=== PATIENT | male | born 1940 | race Two or more races ===

== ENCOUNTER 2016-07-05 07:58 | Day surgery (SDC) | payer MEDICARE, BC ==
--- NOTE | 2016-06-27 12:53 | EKG REPORT ---
SEVERITY:- ABNORMAL ECG - A-V DUAL-PACED COMPLEXES W/ SOME INHIBITION : Confirmed by: Symone Hammond MD 27-Jun-2016 12:52:01
[2016-06-27 12:56] LABS: HEMATOCRIT 45.1 % (37.9-51.0); HEMOGLOBIN 15.4 g/dL (13.5-17.0); HGB HCT DIFFERENCE 1.1; MEAN CORPUSCULAR HEMOGLOBIN 31.2 pg (27.0-33.4); MEAN CORPUSCULAR HGB CONC 34.2 g/dL (32.0-36.0); MEAN CORPUSCULAR VOLUME 91 fl (80-97); RED BLOOD COUNT 4.94 10^6/uL (4.35-5.55); RED CELL DISTRIBUTION WIDTH 15.4 % (11.5-14.0); WHITE BLOOD COUNT 5.4 10^3/uL (4.0-10.5)
[2016-06-27 12:59] LABS: PROTHROMBIN TIME 17.6 SEC (11.4-15.4)
[2016-06-27 13:20] LABS: ANION GAP 12 (5-19); BLOOD UREA NITROGEN 23 mg/dL (7-20); CALCIUM 9.5 mg/dL (8.4-10.2); CARBON DIOXIDE 29 mmol/L (22-30); CHLORIDE 104 mmol/L (98-107); CREATININE RESULT 1.03 mg/dL (0.52-1.25); GLUCOSE 168 mg/dL (75-110); POTASSIUM 4.2 mmol/L (3.6-5.0); SODIUM 144.9 mmol/L (137-145)
[~2016-07-05 07:58] MED LIST: DOXYCYCLINE HYCLATE 100 MG in DEXTROSE 5%-WATER 250 ML IV PRN; LACTATED RINGERS 1000 ML IV PRN; LIDOCAINE 0.5% INJ-PF (5 MG/ML) 50 ML SDV SUBCUT PRN
[2016-07-05 09:24] LABS: PROTHROMBIN TIME 14.2 SEC (11.4-15.4)
[2016-07-05 09:25] LABS: PARTIAL THROMBOPLASTIN TIME 29.7 SEC (23.5-35.8)
[2016-07-05] MEDS ORDERED: SODIUM BICARBONATE 8.4% INJ 50 MEQ/50 ML DISP.SYRIN ONE (09:34)
[2016-07-05] MEDS ORDERED: LIDOCAINE 1%/EPINEPHRINE INJ 20 ML VIAL ONE (09:34)
[2016-07-05] MEDS ORDERED: FENTANYL CITRATE INJ/PF 100 MCG/2 ML AMPUL ONE (10:49)
[2016-07-05] MEDS ORDERED: PROPOFOL INJ 200 MG/20 ML VIAL IV ONE (10:50)
[2016-07-05] MEDS ORDERED: MIDAZOLAM 2 MG/2 ML INJ ONE (10:50)
[2016-07-05] MEDS ORDERED: DIPHENHYDRAMINE HCL 50 MG/ML VIAL IV PRN (11:38)
[2016-07-05] MEDS ORDERED: FENTANYL CITRATE INJ/PF 100 MCG/2 ML AMPUL IV PRN ×3 (11:38)
--- NOTE | 2016-07-05 12:49 | Operative Report ---
Operative Report DATE OF SURGERY: 07/05/16 PREOPERATIVE DIAGNOSIS: Large deep posterior neck midline mass extending subfascial POSTOPERATIVE DIAGNOSIS: Same OPERATION: Excision of deep extending subfascial mass of the midline posterior neck SURGEON: RANULFO CAVAZOS ANESTHESIA: LMAC TISSUE REMOVED OR ALTERED: Deep subfascial extending mass COMPLICATIONS: None ESTIMATED BLOOD LOSS: minimal PROCEDURE: The patient was brought into the operating room after being marked. The patient was placed in a sloppy lateral position. The patient was then prepped with a Betadine scrub and Betadine solution. A timeout was performed. The area for resection was outlined. Injection of 1% lidocaine with epinephrine and bicarbonate was performed for its anesthetic and hemostatic effects. An incision was then made through the skin into the subcutaneous tissue. Dissection was performed [id number] to encounter the mass. Once the mass was encountered a dissection was performed 360 in order to remove the mass Retraction was used to facilitate exposure. Dissection was performed through the subcutaneous tissue and down into the deeper sub-fascial layer . A portion of the deep fascia was opened as we excised the mass at its base. Throughout the case hemostasis was achieved with the bipolar. Once the mass was completely dissected it was then removed. The area was washed with Betadine and sterile water solution. Hemostasis was confirmed. Closure was then performed using 3-0 Vicryl sutures. Because of the size of the mass deeper sutures were placed in order to minimize a deformity. The layers that were dissected were closed [id number] until we reached the deep dermis. 3-0 Vicryl was used for deep dermal sutures. A subcuticular stitch was placed using 3-0 PDS. A central support stitch was placed using and PDS. The wound was cleaned with Betadine prior to the final closure. Tincture of benzoin and Steri-Strips with a light pressure dressing was applied. Patient was then reversed from anesthesia and taken to the [facility] for recovery. The approximate size of the mass was 3.1 cm prior to opening the mass to show the patient the contents. This dictation was performed with dragon naturally speaking. If there are any inconsistencies or errors please contact the physician. Subjective: No complaints Objective: Vital signs stable afebrile No bleeding Dressing intact Assessment and plan: Doing well. Elevate the operative site. Resume medications. Take antibiotics for 1 day Follow-up Full instructions were given to the patient and family and they understand Portions of this note may be dictated using [employer] voice recognition software. Occasional variations and spelling and vocabulary could be possible and are unintentional. Additionally, there is a chance that some errors may not be caught or corrected. Please notify the offer of any discrepancies noted or if any statements are unclear.
--- NOTE | 2016-07-05 12:52 | PDOC DISCHARGE SUMMARY ---
Discharge Summary (SDC) - Discharge Final Diagnosis: Mass of the midline posterior neck extending into the deep subcutaneous fascial layer Date of Surgery: 07/05/16 Condition: Good Treatment or Instructions: Leave the top dressing on for 2 days, then removed. Leave the steri-strip tapes on for 5 days, then removal. Then cleaning wound with peroxide and apply Neosporin/bacitracin 3 times per day. Antibiotics for 1 day, then discontinue. Elevate operative area to decrease swelling. Do not strain, or lift heavy objects. Call for excessive bleeding, increased temperature of 101, uncontrolled pain, or excessive nausea or vomiting. You may reach Dr. Booth through his office at [phone]. In the event of an emergency after hours, then contact Dr. Booth through [facility]. Return to the office for a postop check on . The time will be scheduled by the nursing staff of [facility] prior to discharge. Please give the patient a copy of their labs and EKG so they can bring this to their PMD. Thank you Portions of this note may be dictated using [employer] voice recognition software. Occasional variations and spelling and vocabulary could be possible and are unintentional. Additionally, there is a chance that some errors may not be caught or corrected. Please notify the offer of any discrepancies noted or if any statements are unclear. Discharge Diet: As Tolerated Discharge Activity: Activity As Tolerated - Discharged to home
[2016-07-05 14:49] VITALS: BP 160/103
== END 2016-07-05 14:19 | disposition home or self-care (01) ==
LOC: OROUT 07:58
PROVIDERS: ATTEND Plastic Surgery
PROC: 0JB50ZX Excision of Left Neck Subcutaneous Tissue and Fascia, Open Approach, Diagnostic (ICD-10-PCS; principal; 2016-07-05 10:00)
DX: L72.0 Epidermal cyst (principal); E11.9 Type 2 diabetes mellitus without complications; I11.0 Hypertensive heart disease with heart failure; I50.9 Heart failure, unspecified; I48.91 Unspecified atrial fibrillation; Z79.01 Long term (current) use of anticoagulants; Z79.899 Other long term (current) drug therapy; Z79.84 Long term (current) use of oral hypoglycemic drugs; Z95.0 Presence of cardiac pacemaker
CPT/HCPCS: 93005; 36415 ×2; 82962; 84132; 85027; 85610 ×2; 85730 ×2; 80048; 88305 ×2; 93010; 21556; J2250; J3490 ×3; J7060; J2704; J3010

== ENCOUNTER 2018-10-16 16:37 | Inpatient (IN) | payer MEDICARE, BC ==
--- NOTE | 2018-10-16 17:23 | ER Document Report ---
ED Medical Screen (RME) - General Chief Complaint: Breathing Difficulty Stated Complaint: BREATHING PROBLEMS Time Seen by Provider: 10/16/18 17:12 Primary Care Provider: ALEX BULLOCK PA-C [Primary Care Provider] - Follow up as needed Mode of Arrival: Ambulatory Information source: Patient Notes: Patient is a 78-year-old male with a history of congestive heart failure sent here by Dr. Hoffman for approximately 3 weeks of swelling and increasing shortness of breath with ambulation. He denies any chest pain. TRAVEL OUTSIDE OF THE [place] IN LAST 30 DAYS: No - Related Data Allergies/Adverse Reactions: Cephalosporins Allergy (Verified 10/16/18 16:39) Rash erythromycin base [Erythromycin Base] Allergy (Verified 10/16/18 16:39) RASH Past Medical History - Past Medical History Cardiac Medical History: Reports: Hx Atrial Fibrillation, Hx Hypertension Denies: Hx Coronary Artery Disease, Hx Heart Attack Pulmonary Medical History: Denies: Hx Asthma, Hx Bronchitis, Hx COPD, Hx Pneumonia Neurological Medical History: Denies: Hx Cerebrovascular Accident, Hx Seizures Endocrine Medical History: Reports: Hx Diabetes Mellitus Type 2 GI Medical History: Denies: Hx Hepatitis, Hx Hiatal Hernia, Hx Ulcer Musculoskeltal Medical History: Denies Hx Arthritis Infectious Medical History: Denies: Hx Hepatitis Past Surgical History: Reports: Hx Cardiac Surgery - pacemaker, Hx Pacemaker - DO NOTHING. Denies: Hx Open Heart Surgery - Immunizations Hx Diphtheria, Pertussis, Tetanus Vaccination: Yes Review of Systems - Review of Systems Cardiovascular: See HPI Physical Exam - Vital signs Vitals: Pulse Resp BP Pulse Ox 40 L 12 112/78 92 10/16/18 16:56 10/16/18 16:56 10/16/18 16:56 10/16/18 16:56 - Notes Notes: PHYSICAL EXAMINATION: GENERAL: Chronically ill-appearing and in no acute distress. LUNGS: CTAB and equal. No wheezes rales or rhonchi. Course - Vital Signs Vital signs: Temp Pulse Resp BP Pulse Ox 40 L 12 112/78 92 10/16/18 16:56 10/16/18 16:56 10/16/18 16:56 10/16/18 16:56 Doctor's Discharge - Discharge Referrals: ALEX BULLOCK PA-C [Primary Care Provider] - Follow up as needed
--- NOTE | 2018-10-16 17:37 | RADIOLOGY REPORT (SQ) ---
EXAM DESCRIPTION: CHEST SINGLE VIEW COMPLETED DATE/TIME: 10/16/2018 5:29 pm REASON FOR STUDY: sob COMPARISON: None. EXAM PARAMETERS: NUMBER OF VIEWS: One view. TECHNIQUE: Single frontal radiographic view of the chest acquired. RADIATION DOSE: NA LIMITATIONS: None. FINDINGS: LUNGS AND PLEURA: No opacities, masses or pneumothorax. No pleural effusion. MEDIASTINUM AND HILAR STRUCTURES: No masses. Contour normal. HEART AND VASCULAR STRUCTURES: Cardiomegaly. No pulmonary edema. BONES: No acute findings. HARDWARE: Pacemaker. OTHER: No other significant finding. IMPRESSION: Cardiomegaly without pulmonary edema. TECHNICAL DOCUMENTATION: JOB ID: [id number] [employer]- All Rights Reserved Reading location - IP/workstation name: [email or web address]
[2018-10-16 18:06] LABS: ABSOLUTE BASOPHILS # (AUTO) 0.1 10^3/uL (0.0-0.2); ABSOLUTE EOSINOPHILS # (AUTO) 0.1 10^3/uL (0.0-0.6); ABSOLUTE LYMPHOCYTES (AUTO) 1.2 10^3/uL (0.5-4.7); ABSOLUTE MONOCYTES (AUTO) 0.8 10^3/uL (0.1-1.4); ABSOLUTE NEUT (AUTO) 3.6 10^3/uL (1.7-8.2); BASOPHILS % (AUTO) 1.1 % (0-2); EOSINOPHILS % (AUTO) 2.2 % (0-6); HEMATOCRIT 50.3 % (37.9-51.0); HEMOGLOBIN 16.7 g/dL (13.5-17.0); MEAN CORPUSCULAR HEMOGLOBIN 31.5 pg (27.0-33.4); MEAN CORPUSCULAR HGB CONC 33.3 g/dL (32.0-36.0); MEAN CORPUSCULAR VOLUME 95 fl (80-97); MONOCYTES % (AUTO) 13.4 % (3-13); PLATELET COUNT 201 10^3/uL (150-450); RED CELL DISTRIBUTION WIDTH 16.8 % (11.5-14.0); SEGMENTED NEUTROPHILS % (AUTO) 62.3 % (42-78); TOTAL CELLS COUNTED % (AUTO) 100 %; WHITE BLOOD COUNT 5.8 10^3/uL (4.0-10.5)
[2018-10-16 18:29] LABS: ALANINE AMINOTRANSFERASE 36 U/L (21-72); ALBUMIN 4.1 g/dL (3.5-5.0); ALKALINE PHOSPHATASE 99 U/L (38-126); ANION GAP 11 (5-19); ASPARTATE AMINO TRANSFERASE 26 U/L (17-59); BILIRUBIN,DIRECT 0.6 mg/dL (0.0-0.4); BILIRUBIN,TOTAL 1.5 mg/dL (0.2-1.3); BLOOD UREA NITROGEN 51 mg/dL (7-20); CALCIUM 9.5 mg/dL (8.4-10.2); CARBON DIOXIDE 28 mmol/L (22-30); CHLORIDE 103 mmol/L (98-107); CREATINE KINASE 48 U/L (55-170); GLUCOSE 93 mg/dL (75-110); POTASSIUM 3.9 mmol/L (3.6-5.0); TOTAL PROTEIN 7.2 g/dL (6.3-8.2)
[2018-10-16 18:41] LABS: CREATINE KINASE MB 1.46 ng/mL (<4.55); TROPONIN I 0.029 ng/mL
--- NOTE | 2018-10-16 20:40 | ER Document Report ---
ED Respiratory Problem - General Chief Complaint: Breathing Difficulty Stated Complaint: BREATHING PROBLEMS Time Seen by Provider: 10/16/18 17:12 Mode of Arrival: Ambulatory Notes: Patient is a 78-year-old male with a history of dilated cardiomyopathy, CHF, hypertension, type 2 diabetes, atrial fibrillation, and dual pacemaker that comes to the emergency department for chief complaint of worsening dyspnea on exertion and difficulty lying flat. Patient is also having lower extremity swelling bilaterally, worse on the right (it is always worse on the right according to family). Patient is compliant with his medications including 80 mg of Lasix twice a day. He also has approximately 10 pound weight gain reporte dly. He denies chest pain or fever. He does report cough. Patient states that on of last week he was evaluated at [facility], discharged from the emergency department at that time, followed up with his fitness coordinator, at his fitness coordinator appointment today he was sent here, family states that his fitness coordinator was requesting admission. Remaining medications include Eliquis for A. fib. TRAVEL OUTSIDE OF THE [place] IN LAST 30 DAYS: No - Related Data Allergies/Adverse Reactions: Cephalosporins Allergy (Verified 10/16/18 16:39) Rash erythromycin base [Erythromycin Base] Allergy (Verified 10/16/18 16:39) RASH Past Medical History - General Information source: Patient - Social History Smoking Status: Never Smoker Chew tobacco use (# tins/day): No Frequency of alcohol use: Occasional Drug Abuse: None Lives with: Family Family History: Reviewed & Not Pertinent Patient has suicidal ideation: No Patient has homicidal ideation: No - Past Medical History Cardiac Medical History: Reports: Hx Atrial Fibrillation, Hx Hypertension Denies: Hx Coronary Artery Disease, Hx Heart Attack Pulmonary Medical History: Denies: Hx Asthma, Hx Bronchitis, Hx COPD, Hx Pneumonia Neurological Medical History: Denies: Hx Cerebrovascular Accident, Hx Seizures Endocrine Medical History: Reports: Hx Diabetes Mellitus Type 2 Renal/ Medical History: Denies: Hx Peritoneal Dialysis GI Medical History: Denies: Hx Hepatitis, Hx Hiatal Hernia, Hx Ulcer Musculoskeletal Medical History: Denies Hx Arthritis Infectious Medical History: Denies: Hx Hepatitis Past Surgical History: Reports: Hx Cardiac Surgery - pacemaker, Hx Pacemaker - DO NOTHING. Denies: Hx Open Heart Surgery - Immunizations Hx Diphtheria, Pertussis, Tetanus Vaccination: Yes Review of Systems - Review of Systems Constitutional: No symptoms reported EENT: No symptoms reported Cardiovascular: See HPI Respiratory: See HPI Gastrointestinal: No symptoms reported Genitourinary: No symptoms reported Male Genitourinary: No symptoms reported Musculoskeletal: No symptoms reported Skin: No symptoms reported Hematologic/Lymphatic: No symptoms reported Neurological/Psychological: No symptoms reported Physical Exam - Vital signs Vitals: Pulse Resp BP Pulse Ox 40 L 12 112/78 92 10/16/18 16:56 10/16/18 16:56 10/16/18 16:56 10/16/18 16:56 - Notes Notes: GENERAL: Alert, interacts well. HEAD: Normocephalic, atraumatic. EYES: Pupils equal, round, and reactive to light. Extraocular movements intact. ENT: Oral mucosa moist, tongue midline. Oropharynx unremarkable. Airway patent. LUNGS: Clear to auscultation bilaterally, no wheezes, rales, or rhonchi. No respiratory distress, but does speak with some labored breathing. Appears to become uncomfortable when lying flat. HEART: Regular rate and rhythm. No murmur ABDOMEN: Soft, non-tender. Non-distended. Bowel sounds present in all 4 quadrants. GENITOURINARY: Deferred EXTREMITIES: Moves all 4 extremities spontaneously. Bilateral pitting edema of the lower extremities, worse on the right. Normal radial and dorsalis pedis pulses bilaterally. No cyanosis. BACK: no cervical, thoracic, lumbar midline tenderness. No saddle anesthesia, normal distal neurovascular exam. Moves all extremities in full range of motion. NEUROLOGICAL: Alert and oriented x3. Normal speech. Cranial nerves II through XII grossly intact. PSYCH: Normal affect, normal mood. SKIN: Warm, dry, normal turgor. No rashes or lesions noted. Course - Re-evaluation Re-evalutation: Patient with initial oxygen saturation of 92% on room air, this improved after arrival to the room however. He does have some dyspnea when talking, with exertion, and with lying flat. He is not in respiratory distress. Lungs do sound clear. Chest x-ray does not show any overt abnormality. He does have lower extremity edema bilaterally, worse on the right, this is noted to be chronic by family (swelling is worse than usual but right is always worse than the left). Troponin is not elevated. BNP is elevated at greater than 14,000, this is greater than previously although I do not have any comparison studies. CBC, chemistry generally unremarkable. Patient's fitness coordinator requested for patient to be admitted over the phone. Because of his age, lower semi-swelling despite maxed out Lasix doses, dyspnea on exertion and with lying flat, and elevated BNP patient will be discussed with hospitalist. Family states gratefulness and agreement. Discussed with Dr. Rogers, patient will be admitted to telemetry full admission. - Vital Signs Vital signs: Temp Pulse Resp BP Pulse Ox 40 L 23 H 126/89 H 97 10/16/18 16:56 10/17/18 02:16 10/17/18 02:16 10/17/18 03:00 - Laboratory Result Diagrams: 10/17/18 04:03 10/17/18 04:03 Laboratory results interpreted by me: 10/16/18 10/16/18 10/16/18 17:40 17:40 17:40 RDW 16.8 H Monocytes % 13.4 H BUN 51 H Creatinine 2.01 H Est GFR ( Amer) 39 L Est GFR (Non-Af Amer) 32 L Total Bilirubin 1.5 H Direct Bilirubin 0.6 H Creatine Kinase 48 L NT-Pro-B Natriuret Pep 41572 H - EKG Interpretation by Me Additional EKG results interpreted by me: EKG shows dual paced rhythm at a rate of 79. No significant change from prior. QTC of 510. Discharge - Discharge Clinical Impression: Dyspnea on exertion, Swelling of lower extremity, Acute on chronic diastolic CHF (congestive heart failure) Condition: Stable Disposition: ADMITTED INPATIENT Admitting Provider: Sue (Hospitalist) Unit Admitted: Telemetry
[2018-10-16] MEDS ORDERED: FUROSEMIDE INJ/PF 40 MG/4 ML SDV IV ONE (20:54)
[2018-10-16] MEDS ORDERED: MAG HYDROX/AL HYDROX/SIMETH SUSP 30 ML UDCUP PO PRN (21:48)
[2018-10-16] MEDS ORDERED: MAGNESIUM HYDROXIDE SUSP 30 ML UDCUP PO PRN (21:48)
[2018-10-16] MEDS ORDERED: ONDANSETRON HCL INJ/PF 4 MG/2 ML SDV IV PRN (21:48)
[2018-10-16] MEDS ORDERED: HYDRALAZINE HCL INJ/PF 20 MG/1 ML SDV IV PRN (21:58)
[2018-10-16] MEDS ORDERED: MORPHINE SULFATE 10 MG/ML INJ IV PRN (21:58)
[2018-10-16] MEDS ORDERED: SACUBITRIL/VALSARTAN 97 MG/103 MG TABLET PO SCH (22:00)
[2018-10-16] MEDS ORDERED: POTASSI CL 20 MEQ/50 ML RIDER 20 MEQ/50 ML RTUPB IV ONE (22:45)
[2018-10-16] MEDS ORDERED: GLUCAGON,HUMAN RECOMB 1 MG INJ IM PRN (22:47)
[2018-10-16] MEDS ORDERED: DEXTROSE 50%-WATER 25 GM/50 ML DISP.SYRIN IV PRN ×2 (22:47)
[2018-10-16] MEDS ORDERED: DEXTROSE 40% GEL 15 GM TUBE PO PRN ×2 (22:47)
[2018-10-16] MEDS: APIXABAN 5 MG TABLET PO SCH (22:49)
[2018-10-16] MEDS: CARVEDILOL 6.25 MG TABLET PO SCH (22:49)
[2018-10-16 22:58] LABS: CREATINE KINASE MB 1.12 ng/mL (<4.55); TROPONIN I 0.021 ng/mL
[2018-10-16 23:04] LABS: FREE T3 3.9 pg/mL (2.77-5.27); FREE T4 (FREE THYROXINE) 1.91 ng/dL (0.78-2.19)
[2018-10-16 23:17] LABS: THYROID STIMULATING HORMONE 4.41 uIU/mL (0.47-4.68)
--- NOTE | 2018-10-16 23:20 | EKG REPORT ---
SEVERITY:- ABNORMAL ECG - AFIB/FLUT AND V-PACED COMPLEXES NONSPECIFIC INTRAVENTRICULAR CONDUCTION DELAY NONSPECIFIC ST DEPRESSION : Confirmed by: Taqueria Aj 16-Oct-2018 23:18:24
--- NOTE | 2018-10-17 03:13 | PDOC H&P ---
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 Patient admits that over the last 3-4 weeks he has gradually developed worsening dyspnea with exertion associated with the development of orthopnea and increased edema of his bilateral lower extremities. He further notes that he has gained over 10 pounds, during the last 3 weeks, despite increasing his Lasix to 80 mg twice daily. He denies other associated or accompanying symptoms. He admits prior similar episodes related to his congestive heart failure and dilated cardiomyopathy in the past. He has not identified any aggravating or ameliorating factors for his dyspnea on exertion. In the emergency room he was found to have an elevated BNP and mild hypoxia with an O2 sat of 92% on room air. He was subsequently admitted to the hospital for further evaluation and treatment. Past Medical History Cardiac Medical History: Reports: Atrial Fibrillation, Congestive Heart Failure, Hypertension, Other - Dilated cardiomyopathy Denies: Coronary Artery Disease, Myocardial Infarction Pulmonary Medical History: Denies: Asthma, Bronchitis, Chronic Obstructive Pulmonary Disease (COPD), Pneumonia, Respiratory Failure Neurological Medical History: Denies: Seizures Endocrine Medical History: Reports: Diabetes Mellitus Type 2 Denies: Diabetes Mellitus Type 1, Hyperthyroidism, Hypothyroidism Renal/ Medical History: Reports: Chronic Kidney Disease Denies: Nephrolithiasis Malignancy Medical History: Reports: None GI Medical History: Denies: Cirrhosis, Crohn's Disease, Hepatitis, Hiatal Hernia, Ulcerative Colitis Musculoskeltal Medical History: Denies: Arthritis, Gout Skin Medical History: Denies: Eczema, Psoriasis Psychiatric Medical History: Denies: Alcohol Dependency, Substance Abuse, Tobacco Dependency Traumatic Medical History: Reports: None Hematology: Denies: Anemia, Bleeding Tendencies Infectious Medical History: Reports: None Past Surgical History Past Surgical History: Reports: Knee Replacement, Pacemaker - Dual-chamber pacemaker, Tonsillectomy, Other - Removal of posterior cervical mass Social History Information Source: Patient Lives with: Spouse/Significant other Smoking Status: Never Smoker Frequency of Alcohol Use: None Hx Recreational Drug Use: No Drugs: None Hx Prescription Drug Abuse: No - Advance Directive Resuscitation Status: Full Code Surrogate healthcare decision maker:: Inez Cardenas Family History Family History: CAD, Hypertension, Malignancy. denies: DM Parental Family History Reviewed: Yes Children Family History Reviewed: No Sibling(s) Family History Reviewed.: Yes Medication/Allergy Home Medications: Apixaban [Eliquis 5 mg Tablet] 5 mg PO Q12 10/16/18 Carvedilol [Coreg 6.25 mg Tablet] 6.25 mg PO Q12 10/16/18 Furosemide [Lasix 80 mg Tablet] 80 mg PO DAILY 10/16/18 Isosorbide Mononitrate [Imdur 30 mg Tablet.er] 30 mg PO DAILY 10/16/18 Metolazone [Zaroxolyn 2.5 mg Tablet] 2.5 mg PO Q2D 10/16/18 Sacubitril/Valsartan [Entresto 97 mg/103 mg Tablet] 1 tab PO Q12 10/16/18 Allergies/Adverse Reactions: Cephalosporins Allergy (Verified 10/16/18 16:39) Rash erythromycin base [Erythromycin Base] Allergy (Verified 10/16/18 16:39) RASH Review of Systems Constitutional: ABSENT: chills, fever(s) Eyes: ABSENT: visual disturbances, other - Eye pain Ears: ABSENT: hearing changes, other - Ear pain Nose, Mouth, and Throat: ABSENT: mouth pain, sore throat Cardiovascular: PRESENT: as per HPI, dyspnea on exertion, edema, orthropnea. ABSENT: chest pain, palpitations Respiratory: ABSENT: cough, dyspnea Gastrointestinal: ABSENT: abdominal pain, constipation, diarrhea, nausea, vom iting Genitourinary: ABSENT: dysuria, hematuria Musculoskeletal: ABSENT: back pain, joint swelling, muscle weakness Integumentary: ABSENT: pruritus, rash Neurological: ABSENT: confusion, convulsions, focal weakness, memory loss, syncope Endocrine: ABSENT: cold intolerance, heat intolerance Hematologic/Lymphatic: ABSENT: easy bleeding, easy bruising Physical Exam Vital Signs: Temp Pulse Resp BP Pulse Ox 40 L 12 112/78 92 10/16/18 16:56 10/16/18 16:56 10/16/18 16:56 10/16/18 16:56 Intake & Output 10/14/18 10/15/18 10/16/18 23:59 23:59 23:59 Weight 89.811 kg General appearance: PRESENT: no acute distress, cooperative Head exam: PRESENT: atraumatic, normocephalic Eye exam: PRESENT: conjunctiva pink. ABSENT: conjunctival injection, scleral icterus Ear exam: PRESENT: normal external ear exam. ABSENT: bleeding, drainage Mouth exam: PRESENT: dry mucosa, neck supple Neck exam: ABSENT: thyromegaly, tracheal deviation Respiratory exam: PRESENT: rales - Mild bibasilar rales on auscultation, symmetrical, unlabored Cardiovascular exam: PRESENT: gallop - S4 gallop, irregular rhythm - Irregularly irregular rate and rhythm. ABSENT: clicks, rubs Pulses: PRESENT: normal carotid pulses, normal radial pulses. ABSENT: normal dorsalis pedis pul - Dorsalis pedis pulses are diminished by edema Vascular exam: PRESENT: normal capillary refill. ABSENT: pallor GI/Abdominal exam: PRESENT: normal bowel sounds, soft Rectal exam: PRESENT: deferred Extremities exam: PRESENT: pedal edema - Bipedal edema, +1 edema - Left lower extremity, +2 edema - Right lower extremity. ABSENT: joint swelling Musculoskeletal exam: ABSENT: deformity, dislocation Neurological exam: PRESENT: alert, oriented to person, oriented to place, oriented to time, oriented to situation, CN II-XII grossly intact. ABSENT: motor sensory deficit Psychiatric exam: PRESENT: appropriate affect, normal mood Skin exam: PRESENT: dry, intact, warm. ABSENT: jaundice, rash, urticaria Results Laboratory Results: 10/16/18 17:40 10/16/18 17:40 10/16/18 10/16/18 17:40 17:40 WBC 5.8 RBC 5.30 Hgb 16.7 Hct 50.3 MCV 95 MCH 31.5 MCHC 33.3 RDW 16.8 H Plt Count 201 Seg Neutrophils % 62.3 Lymphocytes % 21.0 Monocytes % 13.4 H Eosinophils % 2.2 Basophils % 1.1 Absolute Neutrophils 3.6 Absolute Lymphocytes 1.2 Absolute Monocytes 0.8 Absolute Eosinophils 0.1 Absolute Basophils 0.1 Sodium 142.0 Potassium 3.9 Chloride 103 Carbon Dioxide 28 Anion Gap 11 BUN 51 H Creatinine 2.01 H Est GFR ( Amer) 39 L Est GFR (Non-Af Amer) 32 L Glucose 93 Calcium 9.5 Total Bilirubin 1.5 H AST 26 ALT 36 Alkaline Phosphatase 99 Total Protein 7.2 Albumin 4.1 10/16/18 10/16/18 17:40 17:40 Creatine Kinase 48 L CK-MB (CK-2) 1.46 Troponin I 0.029 NT-Pro-B Natriuret Pep [id number] H Impressions: Chest X-Ray 10/16/18 17:12 IMPRESSION: Cardiomegaly without pulmonary edema. Assessment and Plan - Diagnosis (1) Acute on chronic diastolic CHF (congestive heart failure) Is this a current diagnosis for this admission?: Yes Plan: Patient be admitted in place on IV diuretic therapy. An echocardiogram will be obtained. Serial cardiac enzymes will be obtained to rule out acute myocardial ischemia or injury. Daily CBC, metabolic profile and magnesium levels will be obtained. Additionally a thyroid profile and a lipid profile will be obtained once. Patient will also use morphine sulfate 2 mg IV every 2 hours as needed for dyspnea or orthopnea. (2) HTN (hypertension) Qualifiers: Hypertension type: essential hypertension Qualified Code(s): I10 - Essential (primary) hypertension Is this a current diagnosis for this admission?: Yes Plan: Patient will be continued on his current antihypertensive regiment with adjustments made as required for treatment of his congestive heart failure. His blood pressure was monitored closely throughout his hospital course. (3) Diabetes mellitus type 2 in obese Is this a current diagnosis for this admission?: Yes Plan: Patient be continued on his usual diabetic therapy and diet. Before meals and at bedtime Accu-Cheks will be obtained with sliding scale insulin to cover hyperglycemia. Hypoglycemic protocol will also be in place. Hemoglobin A1c will be obtained to assess the efficacy of his current therapy. (4) Chronic atrial fibrillation Is this a current diagnosis for this admission?: Yes Plan: Patient will be continued on his usual medications for his chronic atrial fibril lation including his anticoagulant (Eliquis). Changes in these medications will only be made in as required in treatment of his congestive heart failure. - Time Time Spent with patient: 25-34 minutes Medications reviewed and adjusted accordingly: Yes Anticipated discharge: Home - Inpatient Certification Based on my medical assessment, after consideration of the patient's comorbid ities, presenting symptoms, or acuity I expect that the services needed warrant INPATIENT care.: Yes I certify that my determination is in accordance with my understanding of Medicare's requirements for reasonable and necessary INPATIENT services [42 CFR 412.3e].: Yes Medical Necessity: Failure to Improve With Outpatient Therapy, Need Close Monitoring Due to Risk of Patient Decompensation, Need For Continuous Telemetry Monitoring, Risk of Complication if Not Cared For in Hospital
[2018-10-17 04:14] LABS: HEMATOCRIT 47.6 % (37.9-51.0); HEMOGLOBIN 15.8 g/dL (13.5-17.0); MEAN CORPUSCULAR HEMOGLOBIN 31.3 pg (27.0-33.4); MEAN CORPUSCULAR HGB CONC 33.3 g/dL (32.0-36.0); MEAN CORPUSCULAR VOLUME 94 fl (80-97); PLATELET COUNT 158 10^3/uL (150-450); RED BLOOD COUNT 5.05 10^6/uL (4.35-5.55); RED CELL DISTRIBUTION WIDTH 16.8 % (11.5-14.0); WHITE BLOOD COUNT 6.1 10^3/uL (4.0-10.5)
[2018-10-17 04:29] LABS: ANION GAP 11 (5-19); BLOOD UREA NITROGEN 47 mg/dL (7-20); CALCIUM 8.9 mg/dL (8.4-10.2); CARBON DIOXIDE 25 mmol/L (22-30); CHLORIDE 106 mmol/L (98-107); CHOLESTEROL 127.36 mg/dL (0-200); CREATINE KINASE 41 U/L (55-170); GLUCOSE 70 mg/dL (75-110); POTASSIUM 3.6 mmol/L (3.6-5.0); TRIGLYCERIDES 84 mg/dL (<150)
[2018-10-17 04:40] LABS: DIRECT LDL 81 mg/dL (<100)
[2018-10-17] MEDS: BUMETANIDE INJ/PF 1 MG/4 ML SDV IV SCH ×4 (06:48→17:30)
[2018-10-17] MEDS: PANTOPRAZOLE SODIUM 40 MG TABLET.DR PO SCH (06:49)
[2018-10-17] MEDS: POTASSIUM CHLORIDE 10 MEQ CAPSULE.ER PO SCH ×3 (07:53→17:30)
[2018-10-17] MEDS ORDERED: POTASSIUM CHLORIDE 10 MEQ CAPSULE.ER PO SCH (08:00)
[2018-10-17] MEDS: ISOSORBIDE MONONITRATE 30 MG TAB.ER.24H PO SCH (10:19)
[2018-10-17] MEDS: APIXABAN 5 MG TABLET PO SCH ×2 (10:20→21:36)
[2018-10-17] MEDS: CARVEDILOL 6.25 MG TABLET PO SCH ×2 (10:20→21:36)
[2018-10-17] MEDS: DOCUSATE SODIUM 100 MG CAPSULE PO SCH ×2 (10:21→17:30)
[2018-10-17 10:57] LABS: CREATINE KINASE MB 1.47 ng/mL (<4.55); TROPONIN I 0.019 ng/mL
--- NOTE | 2018-10-17 11:16 | XCELERA REPORT ---
[address] [address] Transthoracic Echocardiogram Report Name: QUAN REID Age: 78 yrs Gender: Male : 1940 Patient Status: Inpatient Patient Location: [place] [address]^A Study Date: 10/17/2018 09:19 AM Height: 68 in Weight: 198 lb BSA: 2.0 m2 Procedure: A two-dimensional transthoracic echocardiogram with color flow and Doppler was performed. The study was technically difficult with many images being suboptimal in quality. Reason For Study: CHF worsening Ordering Physician: DIONNA HOLT Performed By: Barbara Delgado Interpretation Summary The left ventricle is moderately dilated. There is normal left ventricular wall thickness. LV EF is Less than 25% Left ventricular systolic function is severely reduced. There is severe global hypokinesis of the left ventricle. There is no thrombus. Probably no ASD,VSD,or PFO. The right ventricle is moderate to severely dilated. The right ventricular systolic function is moderate to severely reduced. The right atrium is moderately dilated. The left atrium is moderately dilated. There is mild mitral leaflet calcification. There is no evidence of mitral valve prolapse. There is no vegetation seen on the mitral valve. There is no mitral valve stenosis. There is a mild amount of mitral regurgitation There is no aortic valvular vegetation. There is aortic sclerosis without aortic stenosis. There is no LVOT obstruction. There is a trace amount of aortic regurgitation There is no tricuspid stenosis. There is a trace amount of tricuspid regurgitation There is mild pulmonary hypertension by echo RVSP is 43 mm of Hg ,with RA men of 10. There is no pulmonic valvular stenosis. There is a mild to moderate amount of pulmonic regurgitation The aortic root is normal size. The inferior vena cava was not visualized There is no pericardial effusion. MMode/2D Measurements & Calculations RVDd: 3.7 cm LVIDd: 5.9 cm FS: 12.9 % Ao root diam: IVSd: 1.1 cm LVIDs: 5.1 cm EDV(Teich): 3.5 cm 170.4 ml Ao root area: LVPWd: 1.2 cm ESV(Teich): 9.7 cm2 123.9 ml EF(Teich): 27.3 % EDV(MOD-sp4): SV(MOD-sp4): 224.2 ml 87.6 ml ESV(MOD-sp4): 136.6 ml EF(MOD-sp4): 39.1 % Doppler Measurements & Calculations Ao V2 max: AI max deja: LV V1 max PG: PA V2 max: 100.5 cm/sec 309.5 cm/sec 1.4 mmHg 53.3 cm/sec Ao max P.0 mmHg AI max P.3 mmHg LV V1 max: PA max PG: AI dec slope: 59.3 cm/sec 1.1 mmHg 176.8 cm/sec2 AI P1/2t: 512.9 msec PI end-d deja: TR max deja: 118.0 cm/sec 290.0 cm/sec TR max P.6 mmHg Left Ventricle The left ventricle is moderately dilated. There is normal left ventricular wall thickness. LV EF is Less than 25%. Left ventricular systolic function is severely reduced. LV diastolic function could not be adequately assessed due to atrial fibrilation. There is severe global hypokinesis of the left ventricle. There is no thrombus. Probably no ASD,VSD,or PFO. Right Ventricle The right ventricle is moderate to severely dilated. The right ventricular systolic function is moderate to severely reduced. Atria The right atrium is moderately dilated. The left atrium is moderately dilated. Mitral Valve There is mild mitral leaflet calcification. There is no evidence of mitral valve prolapse. There is no vegetation seen on the mitral valve. There is no mitral valve stenosis. There is a mild amount of mitral regurgitation. Aortic Valve There is no aortic valvular vegetation. There is aortic sclerosis without aortic stenosis. There is no LVOT obstruction. There is a trace amount of aortic regurgitation. Tricuspid Valve There is no tricuspid stenosis. There is a trace amount of tricuspid regurgitation. There is mild pulmonary hypertension by echo. RVSP is 43 mm of Hg ,with RA men of 10. Pulmonic Valve There is no pulmonic valvular stenosis. There is a mild to moderate amount of pulmonic regurgitation. Great Vessels The aortic root is normal size. The inferior vena cava was not visualized. Effusions There is no pericardial effusion. : DIONNA HOLT > Symone Hammond
[2018-10-17] MEDS: ACETAMINOPHEN 325 MG TABLET PO PRN ×2 (11:40→21:44)
--- NOTE | 2018-10-17 13:42 | Progress Note Acknowledgement ---
Progress Note Acknowledgement Progess Note Acknowledgement: I, the undersigned member of the medical staff with appropriate privileges and with supervisory authority over [ PAC], a dependent practice allied health professional, acknowledge that I have reviewed the progress notes entered on this patient, and in my professional judgment believe that the assessment made and/or any care evidenced was appropriate
--- NOTE | 2018-10-17 13:51 | PDOC PROGRESS REPORT ---
Subjective Progress Note for:: 10/17/18 Subjective:: 10/17/2018 patient is admitted through the emergency room last night with exacerbation of congestive heart failure. Patient was seen yesterday prior to admission by his production support developer and recommended to be seen in the ED for diuresis patient states he has had several episodes of this and states that his BNP has been elevated highly in the past. Patient states that in the last 3 weeks his shortness of breath has been getting worse. Patient denies chest pain or other problems. Patient states that he already feels better since being seen and treated in the emergency room. He is currently waiting for bed upstairs. Patient is in no distress. Reason For Visit: ACUTE EXACERBATION OF CHRONIC DIASTOLIC CHF Physical Exam Vital Signs: Temp Pulse Resp BP Pulse Ox 97.6 F 73 17 126/90 H 99 10/17/18 07:00 10/17/18 13:09 10/17/18 12:00 10/17/18 12:01 10/17/18 12:01 Intake & Output 10/16/18 10/17/18 10/18/18 06:59 06:59 06:59 Intake Total 50 480 Output Total 800 500 Balance -750 -20 Weight 89.811 kg General appearance: PRESENT: no acute distress, well-developed, well-nourished Head exam: PRESENT: atraumatic, normocephalic Respiratory exam: PRESENT: clear to auscultation randy, other - No significant rales or crackles heard. ABSENT: rales, rhonchi, wheezes Cardiovascular exam: PRESENT: other - Patient appears to be paced with a pacemaker Rectal exam: PRESENT: deferred Extremities exam: PRESENT: pedal edema, other - 1-2+ Neurological exam: PRESENT: alert, awake, oriented to person, oriented to place, oriented to time, oriented to situation, CN II-XII grossly intact. ABSENT: motor sensory deficit Psychiatric exam: PRESENT: appropriate affect, normal mood, other - Very pleasant in no distress. ABSENT: homicidal ideation, suicidal ideation Skin exam: PRESENT: dry, intact, warm. ABSENT: cyanosis, rash Results Laboratory Results: 10/17/18 04:03 10/17/18 04:03 10/16/18 10/16/18 10/16/18 17:40 17:40 22:20 WBC 5.8 RBC 5.30 Hgb 16.7 Hct 50.3 MCV 95 MCH 31.5 MCHC 33.3 RDW 16.8 H Plt Count 201 Seg Neutrophils % 62.3 Lymphocytes % 21.0 Monocytes % 13.4 H Eosinophils % 2.2 Basophils % 1.1 Absolute Neutrophils 3.6 Absolute Lymphocytes 1.2 Absolute Monocytes 0.8 Absolute Eosinophils 0.1 Absolute Basophils 0.1 Sodium 142.0 Potassium 3.9 Chloride 103 Carbon Dioxide 28 Anion Gap 11 BUN 51 H Creatinine 2.01 H Est GFR ( Amer) 39 L Est GFR (Non-Af Amer) 32 L Glucose 93 Calcium 9.5 Magnesium Total Bilirubin 1.5 H AST 26 ALT 36 Alkaline Phosphatase 99 Total Protein 7.2 Albumin 4.1 Triglycerides Cholesterol LDL Cholesterol Direct VLDL Cholesterol HDL Cholesterol TSH 4.41 Free T4 1.91 Free T3 pg/mL 3.90 10/17/18 10/17/18 04:03 04:03 WBC 6.1 RBC 5.05 Hgb 15.8 Hct 47.6 MCV 94 MCH 31.3 MCHC 33.3 RDW 16.8 H Plt Count 158 Seg Neutrophils % Lymphocytes % Monocytes % Eosinophils % Basophils % Absolute Neutrophils Absolute Lymphocytes Absolute Monocytes Absolute Eosinophils Absolute Basophils Sodium 141.5 Potassium 3.6 Chloride 106 Carbon Dioxide 25 Anion Gap 11 BUN 47 H Creatinine 1.68 H Est GFR ( Amer) 48 L Est GFR (Non-Af Amer) 40 L Glucose 70 L Calcium 8.9 Magnesium 2.4 H Total Bilirubin AST ALT Alkaline Phosphatase Total Protein Albumin Triglycerides 84 Cholesterol 127.36 LDL Cholesterol Direct 81 VLDL Cholesterol 17.0 HDL Cholesterol 31 L TSH Free T4 Free T3 pg/mL 10/16/18 10/16/18 10/16/18 17:40 17:40 22:20 Creatine Kinase 48 L 45 L CK-MB (CK-2) 1.46 Troponin I 0.029 NT-Pro-B Natriuret Pep [id number] H 10/16/18 10/17/18 10/17/18 22:20 04:03 10:02 Creatine Kinase 41 L 45 L CK-MB (CK-2) 1.12 Troponin I 0.021 NT-Pro-B Natriuret Pep 10/17/18 10:02 Creatine Kinase CK-MB (CK-2) 1.47 Troponin I 0.019 NT-Pro-B Natriuret Pep Impressions: Chest X-Ray 10/16/18 17:12 IMPRESSION: Cardiomegaly without pulmonary edema. Assessment and Plan - Diagnosis (1) Acute on chronic diastolic CHF (congestive heart failure) Is this a current diagnosis for this admission?: Yes Plan: Patient be admitted in place on IV diuretic therapy. An echocardiogram will be obtained. Serial cardiac enzymes will be obtained to rule out acute myocardial ischemia or injury. Daily CBC, metabolic profile and magnesium levels will be obtained. Additionally a thyroid profile and a lipid profile will be obtained once. Patient will also use morphine sulfate 2 mg IV every 2 hours as needed for dyspnea or orthopnea. 10/17/2018 she is currently receiving Bumex 2 mg IV every 6 hours. Patient is diuresing from this patient's admission BNP was in the 14,000 range. Labs have been reviewed. Patient is sitting up in bed talking in full sentences and appears comfortable. Family is in the room and seems satisfied. Patient would like to be referred to a production control pegboard clerk in [place] at the time of discharge this is also at the request of patient's production support developer. (2) Chronic atrial fibrillation Is this a current diagnosis for this admission?: Yes Plan: Patient will be continued on his usual medications for his chronic atrial fibrillation including his anticoagulant (Eliquis). Changes in these medications will only be made in as required in treatment of his congestive heart failure. 10/17/2018 patient has a pacemaker intact, EKG shows no acute changes. Patient continues anticoagulants (3) Diabetes mellitus type 2 in obese Is this a current diagnosis for this admission?: Yes Plan: Patient be continued on his usual diabetic therapy and diet. Before meals and at bedtime Accu-Cheks will be obtained with sliding scale insulin to cover hyperglycemia. Hypoglycemic protocol will also be in place. Hemoglobin A1c will be obtained to assess the efficacy of his current therapy. 10/17/2018 patient's blood glucose well controlled hemoglobin A1c is unremarkable (4) Dyspnea on exertion Is this a current diagnosis for this admission?: Yes Plan: 10/17/2018 patient is comfortable in bed on 2 pillows in no respiratory distress (5) HTN (hypertension) Qualifiers: Hypertension type: essential hypertension Qualified Code(s): I10 - Essential (primary) hypertension Is this a current diagnosis for this admission?: Yes Plan: Patient will be continued on his current antihypertensive regiment with adjustments made as required for treatment of his congestive heart failure. His blood pressure was monitored closely throughout his hospital course. 10/17/2018 patient's blood pressure is well controlled in the ED (6) Swelling of lower extremity Is this a current diagnosis for this admission?: Yes Plan: 10/17/2018 vision appears to have 1-2+ peripheral pitting edema - Time Time Spent with patient: 15-24 minutes
[2018-10-17 15:42] LABS: CREATINE KINASE MB 1.39 ng/mL (<4.55); TROPONIN I 0.018 ng/mL
[2018-10-18] MEDS ORDERED: BUMETANIDE INJ/PF 1 MG/4 ML SDV ONE (00:38)
[2018-10-18] MEDS: BUMETANIDE INJ/PF 1 MG/4 ML SDV IV SCH ×2 (00:44→06:54)
[2018-10-18 05:32] LABS: HEMATOCRIT 46.2 % (37.9-51.0); HEMOGLOBIN 15.3 g/dL (13.5-17.0); MEAN CORPUSCULAR HEMOGLOBIN 31.2 pg (27.0-33.4); MEAN CORPUSCULAR HGB CONC 33.2 g/dL (32.0-36.0); MEAN CORPUSCULAR VOLUME 94 fl (80-97); PLATELET COUNT 168 10^3/uL (150-450); RED BLOOD COUNT 4.91 10^6/uL (4.35-5.55); RED CELL DISTRIBUTION WIDTH 16.8 % (11.5-14.0); WHITE BLOOD COUNT 5.1 10^3/uL (4.0-10.5)
[2018-10-18 05:38] LABS: ANION GAP 9 (5-19); BLOOD UREA NITROGEN 48 mg/dL (7-20); CALCIUM 8.7 mg/dL (8.4-10.2); CARBON DIOXIDE 27 mmol/L (22-30); CHLORIDE 105 mmol/L (98-107); GLUCOSE 129 mg/dL (75-110); POTASSIUM 4.3 mmol/L (3.6-5.0)
[2018-10-18] MEDS: PANTOPRAZOLE SODIUM 40 MG TABLET.DR PO SCH (06:54)
[2018-10-18] MEDS: CARVEDILOL 6.25 MG TABLET PO SCH ×2 (09:52→21:25)
[2018-10-18] MEDS: APIXABAN 5 MG TABLET PO SCH ×2 (09:53→21:25)
[2018-10-18] MEDS: ISOSORBIDE MONONITRATE 30 MG TAB.ER.24H PO SCH (09:53)
[2018-10-18] MEDS: POTASSIUM CHLORIDE 10 MEQ CAPSULE.ER PO SCH ×3 (09:53→17:24)
--- NOTE | 2018-10-18 11:35 | Progress Note Acknowledgement ---
Progress Note Acknowledgement Progess Note Acknowledgement: I, the undersigned member of the medical staff with appropriate privileges and with supervisory authority over [Apollo Cordero], a dependent practice allied health professional, acknowledge that I have reviewed the progress notes entered on this patient, and in my professional judgment believe that the assessment made and/or any care evidenced was appropriate
--- NOTE | 2018-10-18 11:44 | PDOC PROGRESS REPORT ---
Subjective Progress Note for:: 10/18/18 Subjective:: Continued and poorly improved shortness of breath Reason For Visit: ACUTE EXACERBATION OF CHRONIC DIASTOLIC CHF Physical Exam Vital Signs: Temp Pulse Resp BP Pulse Ox 97.4 F 70 16 123/83 99 10/18/18 03:15 10/18/18 07:21 10/18/18 07:21 10/18/18 07:21 10/18/18 07:21 Intake & Output 10/17/18 10/18/18 10/19/18 06:59 06:59 06:59 Intake Total 50 1280 Output Total 800 500 Balance -750 780 Weight 89.811 kg 93.7 kg General appearance: PRESENT: no acute distress, well-developed, well-nourished Neck exam: ABSENT: carotid bruit, JVD, lymphadenopathy, thyromegaly Respiratory exam: PRESENT: crackles, decreased breath sounds Cardiovascular exam: PRESENT: RRR. ABSENT: diastolic murmur, rubs, systolic murmur Pulses: PRESENT: normal dorsalis pedis pul Vascular exam: PRESENT: normal capillary refill GI/Abdominal exam: PRESENT: normal bowel sounds, soft. ABSENT: distended, guarding, mass, organolmegaly, rebound, tenderness Rectal exam: PRESENT: deferred Extremities exam: PRESENT: +2 edema - Pitting bilateral lower extremities Neurological exam: PRESENT: alert, awake, oriented to person, oriented to place, oriented to time, oriented to situation, CN II-XII grossly intact. ABSENT: motor sensory deficit Psychiatric exam: PRESENT: appropriate affect, normal mood. ABSENT: homicidal ideation, suicidal ideation Skin exam: PRESENT: dry, intact, warm. ABSENT: cyanosis, rash Results Laboratory Results: 10/18/18 04:37 10/18/18 04:37 10/18/18 10/18/18 04:37 04:37 WBC 5.1 RBC 4.91 Hgb 15.3 Hct 46.2 MCV 94 MCH 31.2 MCHC 33.2 RDW 16.8 H Plt Count 168 Sodium 141.4 Potassium 4.3 Chloride 105 Carbon Dioxide 27 Anion Gap 9 BUN 48 H Creatinine 1.86 H Est GFR ( Amer) 43 L Est GFR (Non-Af Amer) 35 L Glucose 129 H Calcium 8.7 Magnesium 2.5 H 10/16/18 10/16/18 10/16/18 17:40 17:40 22:20 Creatine Kinase 48 L 45 L CK-MB (CK-2) 1.46 Troponin I 0.029 NT-Pro-B Natriuret Pep 34566 H 10/16/18 10/17/18 10/17/18 22:20 04:03 10:02 Creatine Kinase 41 L 45 L CK-MB (CK-2) 1.12 Troponin I 0.021 NT-Pro-B Natriuret Pep 10/17/18 10/17/18 10/17/18 10:02 14:43 14:43 Creatine Kinase CK-MB (CK-2) 1.47 1.39 Troponin I 0.019 0.018 NT-Pro-B Natriuret Pep 40049 H Impressions: Chest X-Ray 10/16/18 17:12 IMPRESSION: Cardiomegaly without pulmonary edema. Assessment and Plan - Diagnosis (1) Acute on chronic diastolic CHF (congestive heart failure) Is this a current diagnosis for this admission?: Yes Plan: Patient be admitted in place on IV diuretic therapy. An echocardiogram will be obtained. Serial cardiac enzymes will be obtained to rule out acute myocardial ischemia or injury. Daily CBC, metabolic profile and magnesium levels will be obtained. Additionally a thyroid profile and a lipid profile will be obtained once. Patient will also use morphine sulfate 2 mg IV every 2 hours as needed for dyspnea or orthopnea. 10/17/2018 she is currently receiving Bumex 2 mg IV every 6 hours. Patient is diuresing from this patient's admission BNP was in the 14,000 range. Labs have been reviewed. Patient is sitting up in bed talking in full sentences and appears comfortable. Family is in the room and seems satisfied. Patient would like to be referred to a signal helper in [place] at the time of discharge this is also at the request of patient's marketing rotation associate. 10/18/2018-DC Bumex. Patient states he is continued to have increased shortness of breath and poor improvement at this time. Patient's initial BNP was greater than 14,000. Patient is able to talk full sentences. At this time will place patient on a Lasix drip at 10 mg an hour. If patient's blood pressure holds and he has no further problems with his creatinine and renal function I will add Zaroxolyn for 3 days. I will continue to follow. Also place patient on Aldactone 25 mill grams p.o. daily (2) Chronic atrial fibrillation Is this a current diagnosis for this admission?: Yes Plan: Patient will be continued on his usual medications for his chronic atrial fibrillation including his anticoagulant (Eliquis). Changes in these medications will only be made in as required in treatment of his congestive heart failure. 10/17/2018 patient has a pacemaker intact, EKG shows no acute changes. Patient continues anticoagulants 10/18/2018-no complication this time. Continue anticoagulants. (3) CKD (chronic kidney disease) stage 3, GFR 30-59 ml/min Is this a current diagnosis for this admission?: Yes Plan: 10/18/2018-chronic at this time. patient is followed by nephrology on outpatient basis. At this time will place patient on a Lasix drip we will continue to follow creatinines until a significant bump. Also placed patient on Aldactone. BMP in a.m. (4) Diabetes mellitus type 2 in obese Is this a current diagnosis for this admission?: Yes Plan: Patient be continued on his usual diabetic therapy and diet. Before meals and at bedtime Accu-Cheks will be obtained with sliding scale insulin to cover hyperglycemia. Hypoglycemic protocol will also be in place. Hemoglobin A1c will be obtained to assess the efficacy of his current therapy. 10/17/2018 patient's blood glucose well controlled hemoglobin A1c is unremarkable 10/17/2018-stable at this time. - Time Time Spent with patient: 15-24 minutes - Inpatient Certification Based on my medical assessment, after consideration of the patient's comorbidities, presenting symptoms, or acuity I expect that the services needed warrant INPATIENT care.: Yes I certify that my determination is in accordance with my understanding of Medicare's requirements for reasonable and necessary INPATIENT services [42 CFR 412.3e].: Yes Medical Necessity: Other - IV Lasix drip.
[2018-10-18] MEDS ORDERED: BUMETANIDE INJ/PF 1 MG/4 ML SDV IV SCH (11:45)
[2018-10-18] MEDS: DOCUSATE SODIUM 100 MG CAPSULE PO SCH ×2 (12:03→17:24)
[2018-10-18] MEDS: SPIRONOLACTONE 25 MG TABLET PO SCH (12:16)
[2018-10-18] MEDS: INSULIN REG, HUMAN 100 UNIT/ML 3 ML VIAL (PYX) SUBCUT PRN (12:17)
[2018-10-18] MEDS ORDERED: ZOLPIDEM TARTRATE 5 MG TABLET PO PRN (12:51)
[2018-10-18] MEDS: NORMAL SALINE 250 ML with FUROSEMIDE 250 MG IV PRN ×2 (12:53)
[2018-10-18] MEDS: ACETAMINOPHEN 325 MG TABLET PO PRN (21:27)
[2018-10-19 02:02] LABS: APPEARANCE,URINE CLEAR; BILIRUBIN,URINE NEGATIVE (NEGATIVE); COLOR,URINE YELLOW; GLUCOSE, URINE NEGATIVE (NEGATIVE); KETONES,URINE NEGATIVE (NEGATIVE); LEUKOCYTE ESTERASE,URINE NEGATIVE (NEGATIVE); NITRITE,URINE NEGATIVE (NEGATIVE); PROTEIN,URINE 30 mg/dL (NEGATIVE); URINE SPECIFIC GRAVITY 1.009; UROBILINOGEN,URINE NEGATIVE mg/dL (<2.0)
[2018-10-19 09:01] LABS: HEMATOCRIT 46.8 % (37.9-51.0); HEMOGLOBIN 15.6 g/dL (13.5-17.0); MEAN CORPUSCULAR HEMOGLOBIN 31.8 pg (27.0-33.4); MEAN CORPUSCULAR HGB CONC 33.4 g/dL (32.0-36.0); MEAN CORPUSCULAR VOLUME 95 fl (80-97); PLATELET COUNT 161 10^3/uL (150-450); RED CELL DISTRIBUTION WIDTH 16.7 % (11.5-14.0); WHITE BLOOD COUNT 4.3 10^3/uL (4.0-10.5)
[2018-10-19] MEDS: APIXABAN 5 MG TABLET PO SCH ×2 (09:14→21:36)
[2018-10-19] MEDS: POTASSIUM CHLORIDE 10 MEQ CAPSULE.ER PO SCH ×3 (09:14→17:04)
[2018-10-19] MEDS: PANTOPRAZOLE SODIUM 40 MG TABLET.DR PO SCH (09:14)
[2018-10-19] MEDS: DOCUSATE SODIUM 100 MG CAPSULE PO SCH ×2 (09:14→17:05)
[2018-10-19] MEDS: SPIRONOLACTONE 25 MG TABLET PO SCH (09:15)
[2018-10-19] MEDS: CARVEDILOL 6.25 MG TABLET PO SCH ×2 (09:15→21:36)
[2018-10-19] MEDS: ISOSORBIDE MONONITRATE 30 MG TAB.ER.24H PO SCH (09:15)
[2018-10-19 09:27] LABS: BLOOD UREA NITROGEN 47 mg/dL (7-20); CALCIUM 8.7 mg/dL (8.4-10.2); CARBON DIOXIDE 30 mmol/L (22-30); CHLORIDE 106 mmol/L (98-107); GLUCOSE 99 mg/dL (75-110); POTASSIUM 4.2 mmol/L (3.6-5.0)
[2018-10-19 09:28] LABS: ANION GAP 9 (5-19)
--- NOTE | 2018-10-19 09:54 | PDOC PROGRESS REPORT ---
Subjective Progress Note for:: 10/19/18 Subjective:: Continued and poorly improved shortness of breath 10/19/2018-patient had night of confusion secondary to Ambien. No other complaints at this time. Patient does have a history of BPH. Reason For Visit: ACUTE EXACERBATION OF CHRONIC DIASTOLIC CHF Physical Exam Vital Signs: Temp Pulse Resp BP Pulse Ox 97.4 F 57 L 10 L 134/84 H 96 10/19/18 08:19 10/19/18 08:19 10/19/18 08:19 10/19/18 08:19 10/19/18 08:19 Intake & Output 10/18/18 10/19/18 10/20/18 06:59 06:59 06:59 Intake Total 1280 945 Output Total 500 1550 Balance 780 -605 Weight 93.7 kg 92.8 kg General appearance: PRESENT: no acute distress, well-developed, well-nourished Head exam: PRESENT: atraumatic, normocephalic Eye exam: PRESENT: conjunctiva pink, EOMI, PERRLA. ABSENT: scleral icterus Ear exam: PRESENT: normal external ear exam Mouth exam: PRESENT: moist, tongue midline Neck exam: ABSENT: carotid bruit, JVD, lymphadenopathy, thyromegaly Respiratory exam: PRESENT: clear to auscultation randy. ABSENT: rales, rhonchi, wheezes Cardiovascular exam: PRESENT: RRR. ABSENT: diastolic murmur, rubs, systolic murmur Pulses: PRESENT: +1 pedal pulses bilateral Vascular exam: PRESENT: normal capillary refill GI/Abdominal exam: PRESENT: normal bowel sounds, soft. ABSENT: distended, guarding, mass, organolmegaly, rebound, tenderness Rectal exam: PRESENT: deferred Extremities exam: PRESENT: full ROM, +1 edema. ABSENT: calf tenderness, clubb ing, pedal edema Neurological exam: PRESENT: alert, awake, oriented to person, oriented to place, oriented to time, oriented to situation, CN II-XII grossly intact. ABSENT: m otor sensory deficit Psychiatric exam: PRESENT: appropriate affect, normal mood. ABSENT: homicidal ideation, suicidal ideation Skin exam: PRESENT: dry, intact, warm. ABSENT: cyanosis, rash Results Laboratory Results: 10/19/18 07:52 10/19/18 07:52 10/19/18 10/19/18 10/19/18 01:45 07:52 07:52 WBC 4.3 RBC 4.90 Hgb 15.6 Hct 46.8 MCV 95 MCH 31.8 MCHC 33.4 RDW 16.7 H Plt Count 161 Sodium 145.4 H Potassium 4.2 Chloride 106 Carbon Dioxide 30 Anion Gap 9 BUN 47 H Creatinine 1.84 H Est GFR ( Amer) 43 L Est GFR (Non-Af Amer) 36 L Glucose 99 Calcium 8.7 Magnesium 2.5 H Urine Color YELLOW Urine Appearance CLEAR Urine pH 5.0 Ur Specific Dalton 1.009 Urine Protein 30 H Urine Glucose (UA) NEGATIVE Urine Ketones NEGATIVE Urine Blood NEGATIVE Urine Nitrite NEGATIVE Ur Leukocyte Esterase NEGATIVE Urine WBC (Auto) 0 Urine RBC (Auto) 1 10/16/18 10/16/18 10/16/18 17:40 17:40 22:20 Creatine Kinase 48 L 45 L CK-MB (CK-2) 1.46 Troponin I 0.029 NT-Pro-B Natriuret Pep [id number] H 10/16/18 10/17/18 10/17/18 22:20 04:03 10:02 Creatine Kinase 41 L 45 L CK-MB (CK-2) 1.12 Troponin I 0.021 NT-Pro-B Natriuret Pep 10/17/18 10/17/18 10/17/18 10:02 14:43 14:43 Creatine Kinase CK-MB (CK-2) 1.47 1.39 Troponin I 0.019 0.018 NT-Pro-B Natriuret Pep [id number] H 10/19/18 07:52 Creatine Kinase CK-MB (CK-2) Troponin I NT-Pro-B Natriuret Pep [id number] H Impressions: Chest X-Ray 10/16/18 17:12 IMPRESSION: Cardiomegaly without pulmonary edema. Assessment and Plan - Diagnosis (1) Acute on chronic diastolic CHF (congestive heart failure) Is this a current diagnosis for this admission?: Yes Plan: Patient be admitted in place on IV diuretic therapy. An echocardiogram will be obtained. Serial cardiac enzymes will be obtained to rule out acute myocardial ischemia or injury. Daily CBC, metabolic profile and magnesium levels will be obtained. Additionally a thyroid profile and a lipid profile will be obtained once. Patient will also use morphine sulfate 2 mg IV every 2 hours as needed for dyspnea or orthopnea. 10/17/2018 she is currently receiving Bumex 2 mg IV every 6 hours. Patient is diuresing from this patient's admission BNP was in the 14,000 range. Labs have been reviewed. Patient is sitting up in bed talking in full sentences and appears comfortable. Family is in the room and seems satisfied. Patient would like to be referred to a service attendant cafeteria in [place] at the time of discharge this is also at the request of patient's trace clerk. 10/18/2018-DC Bumex. Patient states he is continued to have increased shortness of breath and poor improvement at this time. Patient's initial BNP was greater than 14,000. Patient is able to talk full sentences. At this time will place patient on a Lasix drip at 10 mg an hour. If patient's blood pressure holds and he has no further problems with his creatinine and renal function I will add Zaroxolyn for 3 days. I will continue to follow. Also place patient on Aldactone 25 mill grams p.o. daily 10/19/2018-much improved today. Patient BNP down to 10,000. Patient continues on Lasix drip. Creatinine improved to 1.84. Will insert Escalona as patient was incontinent throughout the night. Continue Lasix drip at this time repeat BMP and BNP in the a.m. Continue Aldactone as well. (2) Chronic atrial fibrillation Is this a current diagnosis for this admission?: Yes Plan: Patient will be continued on his usual medications for his chronic atrial fibrillation including his anticoagulant (Eliquis). Changes in these medications will only be made in as required in treatment of his congestive heart failure. 10/17/2018 patient has a pacemaker intact, EKG shows no acute changes. Patient continues anticoagulants 10/18/2018-no complication this time. Continue anticoagulants. -stable no complications. (3) CKD (chronic kidney disease) stage 3, GFR 30-59 ml/min Is this a current diagnosis for this admission?: Yes Plan: 10/18/2018-chronic at this time. patient is followed by nephrology on outpatient basis. At this time will place patient on a Lasix drip we will continue to follow creatinines until a significant bump. Also placed patient on Aldactone. BMP in a.m. 10/19/2018-improved this a.m. At this time will continue Lasix drip. Will place Escalona catheter patient does have a history of BPH. Place patient on Flomax 0.4 mill grams p.o. daily. Continue to follow (4) Diabetes mellitus type 2 in obese Is this a current diagnosis for this admission?: Yes Plan: Patient be continued on his usual diabetic therapy and diet. Before meals and at bedtime Accu-Cheks will be obtained with sliding scale insulin to cover hyperglycemia. Hypoglycemic protocol will also be in place. Hemoglobin A1c will be obtained to assess the efficacy of his current therapy. 10/17/2018 patient's blood glucose well controlled hemoglobin A1c is unremarkable 10/18/2018-stable at this time. 10/19/2018-stable (5) BPH (benign prostatic hyperplasia) Qualifiers: Lower urinary tract symptom presence: symptoms present Lower urinary tract symptom detail: urinary retention Qualified Code(s): N40.1 - Benign prostatic hyperplasia with lower urinary tract symptoms; R33.8 - Other retention of urine Is this a current diagnosis for this admission?: Yes Plan: 10/19/2018-patient with history of BPH. Patient has complications of starting a stream and emptying completely. Will start patient on Flomax 0.4 mill grams p.o. daily. At this time place a Escalona as well as patient is getting Lasix drip and need for frequent and strict I/O's. Continue to follow. - Time Time Spent with patient: 15-24 minutes - Inpatient Certification Based on my medical assessment, after consideration of the patient's comorbidities, presenting symptoms, or acuity I expect that the services needed warrant INPATIENT care.: Yes I certify that my determination is in accordance with my understanding of Medicare's requirements for reasonable and necessary INPATIENT services [42 CFR 412.3e].: Yes Medical Necessity: Other - IV Lasix drip, continuous monitoring.
--- NOTE | 2018-10-19 09:56 | ADVANCED CARE ---
- Diagnosis (1) Acute on chronic diastolic CHF (congestive heart failure) Diagnosis Current: Yes (2) Chronic atrial fibrillation Diagnosis Current: Yes (3) CKD (chronic kidney disease) stage 3, GFR 30-59 ml/min Diagnosis Current: Yes (4) Diabetes mellitus type 2 in obese Diagnosis Current: Yes (5) BPH (benign prostatic hyperplasia) Diagnosis Current: Yes Attendance: Myself patient and his Resuscitation Status: Full Code Discussion: 10/19/2018-discussion pertaining to current plan of care. At this time patient's creatinine improved slightly we will continue Lasix drip. Place Escalona catheter. Start patient on Flomax and continue to monitor. Once we see a bump in patient's creatinine we will switch patient back over to p.o. diuretics. DC Ambien as patient does not tolerate will place patient on Benadryl 25 mg at bedtime. Patient and family in agreement with plan of care. Care Planning Goals: 1-continue Lasix drip 2-Escalona 3-Flomax 0.4 milligrams p.o. daily 4-DC Ambien. Benadryl 25 mill grams at bedtime for sleep 5-repeat BMP in a.m. Time Spent: 15 minutes
[2018-10-19] MEDS: TAMSULOSIN HCL 0.4 MG CAP.SR.24H PO SCH (11:51)
[2018-10-19] MEDS: LISINOPRIL 5 MG TABLET PO SCH (11:51)
[2018-10-19] MEDS: NORMAL SALINE 250 ML with FUROSEMIDE 250 MG IV PRN ×2 (12:00)
[2018-10-19] MEDS: PHARMACY COMMUNICATION ORDER MC SCH (17:03)
[2018-10-19] MEDS: DIPHENHYDRAMINE HCL 25 MG CAPSULE PO SCH (21:36)
[2018-10-20] MEDS: PANTOPRAZOLE SODIUM 40 MG TABLET.DR PO SCH (05:39)
[2018-10-20 06:11] LABS: HEMATOCRIT 46.2 % (37.9-51.0); HEMOGLOBIN 15.4 g/dL (13.5-17.0); MEAN CORPUSCULAR HEMOGLOBIN 31.9 pg (27.0-33.4); MEAN CORPUSCULAR HGB CONC 33.4 g/dL (32.0-36.0); MEAN CORPUSCULAR VOLUME 96 fl (80-97); PLATELET COUNT 167 10^3/uL (150-450); RED BLOOD COUNT 4.84 10^6/uL (4.35-5.55); WHITE BLOOD COUNT 5.6 10^3/uL (4.0-10.5)
[2018-10-20 06:37] LABS: ANION GAP 8 (5-19); BLOOD UREA NITROGEN 45 mg/dL (7-20); CALCIUM 8.9 mg/dL (8.4-10.2); CARBON DIOXIDE 32 mmol/L (22-30); CHLORIDE 104 mmol/L (98-107); GLUCOSE 138 mg/dL (75-110)
[2018-10-20] MEDS: POTASSIUM CHLORIDE 10 MEQ CAPSULE.ER PO SCH ×3 (09:05→17:07)
[2018-10-20] MEDS: TAMSULOSIN HCL 0.4 MG CAP.SR.24H PO SCH (09:05)
[2018-10-20] MEDS: DOCUSATE SODIUM 100 MG CAPSULE PO SCH ×2 (09:05→17:07)
[2018-10-20] MEDS: SPIRONOLACTONE 25 MG TABLET PO SCH (09:05)
[2018-10-20] MEDS: CARVEDILOL 6.25 MG TABLET PO SCH ×2 (09:05→22:39)
[2018-10-20] MEDS: ISOSORBIDE MONONITRATE 30 MG TAB.ER.24H PO SCH (09:05)
[2018-10-20] MEDS: APIXABAN 5 MG TABLET PO SCH ×2 (09:06→22:39)
[2018-10-20] MEDS: LISINOPRIL 5 MG TABLET PO SCH (09:06)
--- NOTE | 2018-10-20 10:39 | PDOC PROGRESS REPORT ---
Subjective Progress Note for:: 10/20/18 Subjective:: Continued and poorly improved shortness of breath 10/19/2018-patient had night of confusion secondary to Ambien. No other complaints at this time. Patient does have a history of BPH. 10/20/2018-no complaints this a.m. Reason For Visit: ACUTE EXACERBATION OF CHRONIC DIASTOLIC CHF Physical Exam Vital Signs: Temp Pulse Resp BP Pulse Ox 97.5 F 73 12 126/82 H 98 10/20/18 08:38 10/20/18 08:38 10/20/18 08:38 10/20/18 08:38 10/20/18 08:38 Intake & Output 10/19/18 10/20/18 10/21/18 06:59 06:59 06:59 Intake Total 945 1368 Output Total 1550 3700 Balance -605 -2332 Weight 92.8 kg 90.1 kg General appearance: PRESENT: no acute distress, well-developed, well-nourished Head exam: PRESENT: atraumatic, normocephalic Eye exam: PRESENT: conjunctiva pink, EOMI, PERRLA. ABSENT: scleral icterus Ear exam: PRESENT: normal external ear exam Mouth exam: PRESENT: moist, tongue midline Neck exam: ABSENT: carotid bruit, JVD, lymphadenopathy, thyromegaly Respiratory exam: PRESENT: clear to auscultation randy. ABSENT: rales, rhonchi, wheezes Cardiovascular exam: PRESENT: RRR. ABSENT: diastolic murmur, rubs, systolic murmur Pulses: PRESENT: normal dorsalis pedis pul Vascular exam: PRESENT: normal capillary refill GI/Abdominal exam: PRESENT: normal bowel sounds, soft. ABSENT: distended, guarding, mass, organolmegaly, rebound, tenderness Rectal exam: PRESENT: deferred Extremities exam: PRESENT: full ROM. ABSENT: calf tenderness, clubbing, pedal edema Neurological exam: PRESENT: alert, awake, oriented to person, oriented to place, oriented to time, oriented to situation, CN II-XII grossly intact. ABSENT: motor sensory deficit Psychiatric exam: PRESENT: appropriate affect, normal mood. ABSENT: homicidal ideation, suicidal ideation Skin exam: PRESENT: dry, intact, warm. ABSENT: cyanosis, rash Results Laboratory Results: 10/20/18 05:53 10/20/18 05:53 10/20/18 10/20/18 05:53 05:53 WBC 5.6 RBC 4.84 Hgb 15.4 Hct 46.2 MCV 96 MCH 31.9 MCHC 33.4 RDW 17.0 H Plt Count 167 Sodium 143.6 Potassium 5.0 Chloride 104 Carbon Dioxide 32 H Anion Gap 8 BUN 45 H Creatinine 1.70 H Est GFR ( Amer) 47 L Est GFR (Non-Af Amer) 39 L Glucose 138 H Calcium 8.9 10/16/18 10/16/18 10/16/18 17:40 17:40 22:20 Creatine Kinase 48 L 45 L CK-MB (CK-2) 1.46 Troponin I 0.029 NT-Pro-B Natriuret Pep 61325 H 10/16/18 10/17/18 10/17/18 22:20 04:03 10:02 Creatine Kinase 41 L 45 L CK-MB (CK-2) 1.12 Troponin I 0.021 NT-Pro-B Natriuret Pep 10/17/18 10/17/18 10/17/18 10:02 14:43 14:43 Creatine Kinase CK-MB (CK-2) 1.47 1.39 Troponin I 0.019 0.018 NT-Pro-B Natriuret Pep [id number] H 10/19/18 10/20/18 07:52 05:53 Creatine Kinase CK-MB (CK-2) Troponin I NT-Pro-B Natriuret Pep [id number] H 8690 H Impressions: Chest X-Ray 10/16/18 17:12 IMPRESSION: Cardiomegaly without pulmonary edema. Assessment and Plan - Diagnosis (1) Acute on chronic diastolic CHF (congestive heart failure) Is this a current diagnosis for this admission?: Yes Plan: Patient be admitted in place on IV diuretic therapy. An echocardiogram will be obtained. Serial cardiac enzymes will be obtained to rule out acute myocardial ischemia or injury. Daily CBC, metabolic profile and magnesium levels will be obtained. Additionally a thyroid profile and a lipid profile will be obtained once. Patient will also use morphine sulfate 2 mg IV every 2 hours as needed for dyspnea or orthopnea. 10/17/2018 she is currently receiving Bumex 2 mg IV every 6 hours. Patient is diuresing from this patient's admission BNP was in the 14,000 range. Labs have been reviewed. Patient is sitting up in bed talking in full sentences and appears comfortable. Family is in the room and seems satisfied. Patient would like to be referred to a topology teacher in [place] at the time of discharge this is also at the request of patient's dross puller. 10/18/2018-DC Bumex. Patient states he is continued to have increased shortness of breath and poor improvement at this time. Patient's initial BNP was greater than 14,000. Patient is able to talk full sentences. At this time will place patient on a Lasix drip at 10 mg an hour. If patient's blood pressure holds and he has no further problems with his creatinine and renal function I will add Zaroxolyn for 3 days. I will continue to follow. Also place patient on Aldactone 25 mill grams p.o. daily 10/19/2018-much improved today. Patient BNP down to 10,000. Patient continues on Lasix drip. Creatinine improved to 1.84. Will insert Escalona as patient was incontinent throughout the night. Continue Lasix drip at this time repeat BMP and BNP in the a.m. Continue Aldactone as well. 10/20/2018-continues to improve. Creatinine down to 1.7 Which showed improvement from yesterday. IV diuresis is decreasing his preload was increased as perfusion. We will continue IV diuresis this time and await a bump in his creatinine. Patient is also on beta-blockers and EUGENE inhibitors at this time for his LV dysfunction systolic heart failure. (2) Chronic atrial fibrillation Is this a current diagnosis for this admission?: Yes Plan: Patient will be continued on his usual medications for his chronic atrial fibrillation including his anticoagulant (Eliquis). Changes in these medications will only be made in as required in treatment of his congestive heart failure. 10/17/2018 patient has a pacemaker intact, EKG shows no acute changes. Patient continues anticoagulants 10/18/2018-no complication this time. Continue anticoagulants. 10/19/2018-stable no complications. 10/20/2018-chronic stable (3) CKD (chronic kidney disease) stage 3, GFR 30-59 ml/min Is this a current diagnosis for this admission?: Yes Plan: 10/18/2018-chronic at this time. patient is followed by nephrology on outpatient basis. At this time will place patient on a Lasix drip we will continue to follow creatinines until a significant bump. Also placed patient on Aldactone. BMP in a.m. 10/19/2018-improved this a.m. At this time will continue Lasix drip. Will place Escalona catheter patient does have a history of BPH. Place patient on Flomax 0.4 mill grams p.o. daily. Continue to follow 10/20/2018-stable improved. Continue Lasix drip until we see a bump in his creatinine. (4) Diabetes mellitus type 2 in obese Is this a current diagnosis for this admission?: Yes Plan: Patient be continued on his usual diabetic therapy and diet. Before meals and a t bedtime Accu-Cheks will be obtained with sliding scale insulin to cover hyperglycemia. Hypoglycemic protocol will also be in place. Hemoglobin A1c will be obtained to assess the efficacy of his current therapy. 10/17/2018 patient's blood glucose well controlled hemoglobin A1c is unremarkable 10/18/2018-stable at this time. 10/19/2018-stable 10/20/2018-stable (5) BPH (benign prostatic hyperplasia) Qualifiers: Lower urinary tract symptom presence: symptoms present Lower urinary tract symptom detail: urinary retention Qualified Code(s): N40.1 - Benign prostatic hyperplasia with lower urinary tract symptoms; R33.8 - Other retention of urine Is this a current diagnosis for this admission?: Yes Plan: 10/19/2018-patient with history of BPH. Patient has complications of starting a stream and emptying completely. Will start patient on Flomax 0.4 mill grams p.o. daily. At this time place a Escalona as well as patient is getting Lasix drip and need for frequent and strict I/O's. Continue to follow. 10/20/2018-patient started on Flomax 0.4 mg p.o. daily yesterday no complaints at this time. - Time Time Spent with patient: 15-24 minutes - Inpatient Certification Based on my medical assessment, after consideration of the patient's comorbidities, presenting symptoms, or acuity I expect that the services needed warrant INPATIENT care.: Yes I certify that my determination is in accordance with my understanding of Medicare's requirements for reasonable and necessary INPATIENT services [42 CFR 412.3e].: Yes Medical Necessity: Other - IV Lasix drip
[2018-10-20] MEDS: NORMAL SALINE 250 ML with FUROSEMIDE 250 MG IV PRN ×2 (13:19)
[2018-10-20] MEDS: ACETAMINOPHEN 325 MG TABLET PO PRN (15:43)
[2018-10-20] MEDS: PHARMACY COMMUNICATION ORDER MC SCH (17:08)
[2018-10-20] MEDS: DIPHENHYDRAMINE HCL 25 MG CAPSULE PO SCH (22:39)
[2018-10-20] MEDS: MELATONIN 3 MG TABLET PO PRN (23:46)
[2018-10-21 05:00] LABS: HEMOGLOBIN 14.8 g/dL (13.5-17.0); MEAN CORPUSCULAR HEMOGLOBIN 31.3 pg (27.0-33.4); MEAN CORPUSCULAR HGB CONC 32.8 g/dL (32.0-36.0); MEAN CORPUSCULAR VOLUME 95 fl (80-97); PLATELET COUNT 154 10^3/uL (150-450); RED BLOOD COUNT 4.73 10^6/uL (4.35-5.55); RED CELL DISTRIBUTION WIDTH 16.7 % (11.5-14.0); WHITE BLOOD COUNT 4.6 10^3/uL (4.0-10.5)
[2018-10-21 05:32] LABS: ANION GAP 7 (5-19); BLOOD UREA NITROGEN 41 mg/dL (7-20); CALCIUM 8.8 mg/dL (8.4-10.2); CARBON DIOXIDE 32 mmol/L (22-30); CHLORIDE 103 mmol/L (98-107); GLUCOSE 116 mg/dL (75-110); POTASSIUM 4.1 mmol/L (3.6-5.0)
[2018-10-21] MEDS: PANTOPRAZOLE SODIUM 40 MG TABLET.DR PO SCH (06:40)
[2018-10-21] MEDS: TAMSULOSIN HCL 0.4 MG CAP.SR.24H PO SCH (09:48)
[2018-10-21] MEDS: DOCUSATE SODIUM 100 MG CAPSULE PO SCH ×2 (09:49→17:41)
[2018-10-21] MEDS: ISOSORBIDE MONONITRATE 30 MG TAB.ER.24H PO SCH (09:49)
[2018-10-21] MEDS: POTASSIUM CHLORIDE 10 MEQ CAPSULE.ER PO SCH ×3 (09:49→17:42)
[2018-10-21] MEDS: SPIRONOLACTONE 25 MG TABLET PO SCH (09:49)
[2018-10-21] MEDS: APIXABAN 5 MG TABLET PO SCH ×2 (09:49→21:05)
[2018-10-21] MEDS: LISINOPRIL 5 MG TABLET PO SCH (09:49)
[2018-10-21] MEDS: CARVEDILOL 6.25 MG TABLET PO SCH ×2 (09:49→21:05)
--- NOTE | 2018-10-21 10:37 | PDOC PROGRESS REPORT ---
Subjective Progress Note for:: 10/21/18 Subjective:: Continued and poorly improved shortness of breath 10/19/2018-patient had night of confusion secondary to Ambien. No other complaints at this time. Patient does have a history of BPH. 10/20/2018-no complaints this a.m. 10/21/2018-no complaints this a.m. Reason For Visit: ACUTE EXACERBATION OF CHRONIC DIASTOLIC CHF Physical Exam Vital Signs: Temp Pulse Resp BP Pulse Ox 97.3 F 74 16 118/84 97 10/21/18 07:16 10/21/18 07:16 10/21/18 07:16 10/21/18 07:16 10/21/18 07:16 Intake & Output 10/20/18 10/21/18 10/22/18 06:59 06:59 06:59 Intake Total 1368 2064 Output Total 3700 3775 Balance -2332 -1711 Weight 90.1 kg 89.2 kg General appearance: PRESENT: no acute distress, well-developed, well-nourished Head exam: PRESENT: atraumatic, normocephalic Eye exam: PRESENT: conjunctiva pink, EOMI, PERRLA. ABSENT: scleral icterus Ear exam: PRESENT: normal external ear exam Mouth exam: PRESENT: moist, tongue midline Neck exam: ABSENT: carotid bruit, JVD, lymphadenopathy, thyromegaly Respiratory exam: PRESENT: clear to auscultation randy. ABSENT: rales, rhonchi, wheezes Cardiovascular exam: PRESENT: RRR. ABSENT: diastolic murmur, rubs, systolic murmur Pulses: PRESENT: normal dorsalis pedis pul Vascular exam: PRESENT: normal capillary refill GI/Abdominal exam: PRESENT: normal bowel sounds, soft. ABSENT: distended, guarding, mass, organolmegaly, rebound, tenderness Rectal exam: PRESENT: deferred Extremities exam: PRESENT: full ROM. ABSENT: calf tenderness, clubbing, pedal edema Neurological exam: PRESENT: alert, awake, oriented to person, oriented to place, oriented to time, oriented to situation, CN II-XII grossly intact. ABSENT: motor sensory deficit Psychiatric exam: PRESENT: appropriate affect, normal mood. ABSENT: homicidal ideation, suicidal ideation Skin exam: PRESENT: dry, intact, warm. ABSENT: cyanosis, rash Results Laboratory Results: 10/21/18 04:18 10/21/18 04:18 10/21/18 10/21/18 04:18 04:18 WBC 4.6 RBC 4.73 Hgb 14.8 Hct 45.0 MCV 95 MCH 31.3 MCHC 32.8 RDW 16.7 H Plt Count 154 Sodium 141.7 Potassium 4.1 Chloride 103 Carbon Dioxide 32 H Anion Gap 7 BUN 41 H Creatinine 1.68 H Est GFR ( Amer) 48 L Est GFR (Non-Af Amer) 40 L Glucose 116 H Calcium 8.8 10/16/18 10/16/18 10/16/18 17:40 17:40 22:20 Creatine Kinase 48 L 45 L CK-MB (CK-2) 1.46 Troponin I 0.029 NT-Pro-B Natriuret Pep 96124 H 10/16/18 10/17/18 10/17/18 22:20 04:03 10:02 Creatine Kinase 41 L 45 L CK-MB (CK-2) 1.12 Troponin I 0.021 NT-Pro-B Natriuret Pep 10/17/18 10/17/18 10/17/18 10:02 14:43 14:43 Creatine Kinase CK-MB (CK-2) 1.47 1.39 Troponin I 0.019 0.018 NT-Pro-B Natriuret Pep 75462 H 10/19/18 10/20/18 07:52 05:53 Creatine Kinase CK-MB (CK-2) Troponin I NT-Pro-B Natriuret Pep 98881 H 8690 H Impressions: Chest X-Ray 10/16/18 17:12 IMPRESSION: Cardiomegaly without pulmonary edema. Assessment and Plan - Diagnosis (1) Acute on chronic diastolic CHF (congestive heart failure) Is this a current diagnosis for this admission?: Yes Plan: Patient be admitted in place on IV diuretic therapy. An echocardiogram will be obtained. Serial cardiac enzymes will be obtained to rule out acute myocardial ischemia or injury. Daily CBC, metabolic profile and magnesium levels will be obtained. Additionally a thyroid profile and a lipid profile will be obtained once. Patient will also use morphine sulfate 2 mg IV every 2 hours as needed for dyspnea or orthopnea. 10/17/2018 she is currently receiving Bumex 2 mg IV every 6 hours. Patient is diuresing from this patient's admission BNP was in the 14,000 range. Labs have been reviewed. Patient is sitting up in bed talking in full sentences and appears comfortable. Family is in the room and seems satisfied. 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 10/18/2018-DC Bumex. Patient states he is continued to have increased shortness of breath and poor improvement at this time. Patient's initial BNP was greater than 14,000. Patient is able to talk full sentences. At this time will place patient on a Lasix drip at 10 mg an hour. If patient's blood pressure holds and he has no further problems with his creatinine and renal function I will add Zaroxolyn for 3 days. I will continue to follow. Also place patient on Aldactone 25 mill grams p.o. daily 10/19/2018-much improved today. Patient BNP down to 10,000. Patient continues on Lasix drip. Creatinine improved to 1.84. Will insert Escalona as patient was incontinent throughout the night. Continue Lasix drip at this time repeat BMP and BNP in the a.m. Continue Aldactone as well. 10/20/2018-continues to improve. Creatinine down to 1.7 Which showed improvement from yesterday. IV diuresis is decreasing his preload was increased as perfusion. We will continue IV diuresis this time and await a bump in his creatinine. Patient is also on beta-blockers and EUGENE inhibitors at this time for his LV dysfunction systolic heart failure. 10/21/2018-creatinine down to 1.68 today. Slight improvement from yesterday. Continue IV diuresis at this time to help decrease preload. Reassess in a.m. possible discharge home at that time. Continue beta-blockers, Aldactone and EUGENE inhibitors. (2) Chronic atrial fibrillation Is this a current diagnosis for this admission?: Yes Plan: Patient will be continued on his usual medications for his chronic atrial fibrillation including his anticoagulant (Eliquis). Changes in these medicatio ns will only be made in as required in treatment of his congestive heart failure. 10/17/2018 patient has a pacemaker intact, EKG shows no acute changes. Patient continues anticoagulants 10/18/2018-no complication this time. Continue anticoagulants. 10/19/2018-stable no complications. 10/20/2018-chronic stable 10/21/2018-stable controlled. (3) CKD (chronic kidney disease) stage 3, GFR 30-59 ml/min Is this a current diagnosis for this admission?: Yes Plan: 10/18/2018-chronic at this time. patient is followed by nephrology on outpatient basis. At this time will place patient on a Lasix drip we will continue to follow creatinines until a significant bump. Also placed patient on Aldactone. BMP in a.m. 10/19/2018-improved this a.m. At this time will continue Lasix drip. Will place Escalona catheter patient does have a history of BPH. Place patient on Flomax 0.4 mill grams p.o. daily. Continue to follow 10/20/2018-stable improved. Continue Lasix drip until we see a bump in his creatinine. 10/21/2018-improved at this time. Creatinine is 1.68 today. Decrease in patient's preload is helping renal perfusion. Continue Lasix drip at this time. Reassess in the a.m. (4) Diabetes mellitus type 2 in obese Is this a current diagnosis for this admission?: Yes Plan: Patient be continued on his usual diabetic therapy and diet. Before meals and at bedtime Accu-Cheks will be obtained with sliding scale insulin to cover hyperglycemia. Hypoglycemic protocol will also be in place. Hemoglobin A1c will be obtained to assess the efficacy of his current therapy. 10/17/2018 patient's blood glucose well controlled hemoglobin A1c is unremarkable 10/18/2018-stable at this time. 10/19/2018-stable 10/20/2018-stable 10/21/2018-stable (5) BPH (benign prostatic hyperplasia) Qualifiers: Lower urinary tract symptom presence: symptoms present Lower urinary tract symptom detail: urinary retention Qualified Code(s): N40.1 - Benign prostatic hyperplasia with lower urinary tract symptoms; R33.8 - Other retention of urine Is this a current diagnosis for this admission?: Yes Plan: 10/19/2018-patient with history of BPH. Patient has complications of starting a stream and emptying completely. Will start patient on Flomax 0.4 mill grams p.o. daily. At this time place a Escalona as well as patient is getting Lasix drip and need for frequent and strict I/O's. Continue to follow. 10/20/2018-patient started on Flomax 0.4 mg p.o. daily yesterday no complaints at this time. 10/21/2018-continue Flomax - Time Time Spent with patient: 15-24 minutes - Inpatient Certification Based on my medical assessment, after consideration of the patient's comorbidities, presenting symptoms, or acuity I expect that the services needed warrant INPATIENT care.: Yes I certify that my determination is in accordance with my understanding of Medicare's requirements for reasonable and necessary INPATIENT services [42 CFR 412.3e].: Yes Medical Necessity: Other - IV Lasix drip, continues monitoring
[2018-10-21] MEDS: INSULIN REG, HUMAN 100 UNIT/ML 3 ML VIAL (PYX) SUBCUT PRN (13:01)
[2018-10-21] MEDS: PHARMACY COMMUNICATION ORDER MC SCH (17:41)
[2018-10-21] MEDS: NORMAL SALINE 250 ML with FUROSEMIDE 250 MG IV PRN ×2 (17:45)
[2018-10-21] MEDS: ACETAMINOPHEN 325 MG TABLET PO PRN (20:11)
[2018-10-21] MEDS: DIPHENHYDRAMINE HCL 25 MG CAPSULE PO SCH (21:05)
[2018-10-21] MEDS: MELATONIN 3 MG TABLET PO PRN (21:05)
[2018-10-22 04:38] VITALS: BP 108/75
[2018-10-22 05:01] LABS: HEMATOCRIT 45.4 % (37.9-51.0); MEAN CORPUSCULAR HEMOGLOBIN 31.6 pg (27.0-33.4); MEAN CORPUSCULAR HGB CONC 33.1 g/dL (32.0-36.0); MEAN CORPUSCULAR VOLUME 96 fl (80-97); PLATELET COUNT 169 10^3/uL (150-450); RED BLOOD COUNT 4.75 10^6/uL (4.35-5.55); RED CELL DISTRIBUTION WIDTH 16.7 % (11.5-14.0); WHITE BLOOD COUNT 4.8 10^3/uL (4.0-10.5)
[2018-10-22 05:26] LABS: ANION GAP 8 (5-19); BLOOD UREA NITROGEN 40 mg/dL (7-20); CALCIUM 8.9 mg/dL (8.4-10.2); CARBON DIOXIDE 33 mmol/L (22-30); CHLORIDE 101 mmol/L (98-107); GLUCOSE 116 mg/dL (75-110); POTASSIUM 4.3 mmol/L (3.6-5.0)
[2018-10-22] MEDS: PANTOPRAZOLE SODIUM 40 MG TABLET.DR PO SCH (06:43)
[2018-10-22] MEDS ORDERED: ACETAMINOPHEN 325 MG TABLET PO PRN (07:09)
[2018-10-22] MEDS ORDERED: ONDANSETRON HCL INJ/PF 4 MG/2 ML SDV IV PRN (07:30)
[2018-10-22] MEDS: DOCUSATE SODIUM 100 MG CAPSULE PO SCH ×2 (09:13→09:26)
[2018-10-22] MEDS: APIXABAN 5 MG TABLET PO SCH (09:17)
[2018-10-22] MEDS: CARVEDILOL 6.25 MG TABLET PO SCH (09:17)
[2018-10-22] MEDS: TAMSULOSIN HCL 0.4 MG CAP.SR.24H PO SCH (09:17)
[2018-10-22] MEDS: LISINOPRIL 5 MG TABLET PO SCH (09:18)
[2018-10-22] MEDS: SPIRONOLACTONE 25 MG TABLET PO SCH (09:18)
[2018-10-22] MEDS: POTASSIUM CHLORIDE 10 MEQ CAPSULE.ER PO SCH (09:19)
[2018-10-22] MEDS ORDERED: ISOSORBIDE MONONITRATE 30 MG TAB.ER.24H PO SCH (10:00)
--- NOTE | 2018-10-22 11:54 | PDOC DISCHARGE SUMMARY ---
General - Admit/Disc Date/PCP Admission Date/Primary Care Provider: 10/16/18 21:24 ANNE SADLER MD Discharge Date: 10/22/18 - Discharge Diagnosis (1) Acute on chronic diastolic CHF (congestive heart failure) Is this a current diagnosis for this admission?: Yes (2) Chronic atrial fibrillation Is this a current diagnosis for this admission?: Yes (3) CKD (chronic kidney disease) stage 3, GFR 30-59 ml/min Is this a current diagnosis for this admission?: Yes (4) Diabetes mellitus type 2 in obese Is this a current diagnosis for this admission?: Yes (5) BPH (benign prostatic hyperplasia) Is this a current diagnosis for this admission?: Yes - Additional Information Resuscitation Status: Full Code Discharge Diet: As Tolerated Discharge Activity: Activity As Tolerated Prescriptions: Potassium Chloride 20 meq PO DAILY #30 tab.er.prt Tamsulosin HCl [Flomax 0.4 mg Cap.sr] 0.4 mg PO DAILY #30 cap.sr.24h Home Medications: Apixaban [Eliquis 5 mg Tablet] 5 mg PO Q12 10/16/18 Carvedilol [Coreg 6.25 mg Tablet] 6.25 mg PO Q12 10/16/18 Furosemide [Lasix 80 mg Tablet] 80 mg PO DAILY 10/16/18 Isosorbide Mononitrate [Imdur 30 mg Tablet.er] 30 mg PO DAILY 10/16/18 Sacubitril/Valsartan [Entresto 97 mg/103 mg Tablet] 1 tab PO Q12 10/16/18 Glimepiride 2 mg PO DAILY 10/18/18 Potassium Chloride 20 meq PO DAILY #30 tab.er.prt 10/22/18 Tamsulosin HCl [Flomax 0.4 mg Cap.sr] 0.4 mg PO DAILY #30 cap.sr.24h 10/22/18 History of Present Illness Patient complains of: None this a.m. History of Present Illness: QUAN REID is a 78 year old male who was admitted for an acute exacerbation of chronic systolic congestive heart failure. Hospital Course Hospital Course: Patient admitted to [facility] and aggressively diuresed with Lasix drip. Patient remains on beta-blockers and EUGENE inhibitors at this time. Patient also on Eliquis for anticoagulation. Patient is improved sufficiently this time return home he will continue all home medications as previous and follow-up with Dr. Evelia ibrahimuez the end of this week or first of next week. Patient also has a history of BPH for which I placed patient on Flomax 0.4 mill grams p.o. daily. Patient and family on agreement with plan of care. Patient be followed up and further recognitions per Dr. Hoffman. Physical Exam Vital Signs: Temp Pulse Resp BP Pulse Ox 97.6 F 72 20 108/75 96 10/22/18 03:19 10/22/18 07:00 10/22/18 03:19 10/22/18 03:19 10/22/18 03:19 Intake & Output 10/21/18 10/22/18 10/23/18 06:59 06:59 06:59 Intake Total 2064 909 Output Total 3064 1635 Balance -4621 -4936 Weight 89.2 kg 86.7 kg General appearance: PRESENT: no acute distress, well-developed, well-nourished Head exam: PRESENT: atraumatic, normocephalic Eye exam: PRESENT: conjunctiva pink, EOMI, PERRLA. ABSENT: scleral icterus Ear exam: PRESENT: normal external ear exam Mouth exam: PRESENT: moist, tongue midline Neck exam: ABSENT: carotid bruit, JVD, lymphadenopathy, thyromegaly Respiratory exam: PRESENT: clear to auscultation randy. ABSENT: rales, rhonchi, wheezes Cardiovascular exam: PRESENT: RRR. ABSENT: diastolic murmur, rubs, systolic murmur Pulses: PRESENT: normal dorsalis pedis pul Vascular exam: PRESENT: normal capillary refill GI/Abdominal exam: PRESENT: normal bowel sounds, soft. ABSENT: distended, guarding, mass, organolmegaly, rebound, tenderness Rectal exam: PRESENT: deferred Extremities exam: PRESENT: full ROM. ABSENT: calf tenderness, clubbing, pedal edema Neurological exam: PRESENT: alert, awake, oriented to person, oriented to place, oriented to time, oriented to situation, CN II-XII grossly intact. ABSENT: motor sensory deficit Psychiatric exam: PRESENT: appropriate affect, normal mood. ABSENT: homicidal ideation, suicidal ideation Skin exam: PRESENT: dry, intact, warm. ABSENT: cyanosis, rash Results Laboratory Results: 10/22/18 04:27 10/22/18 04:27 10/22/18 10/22/18 04:27 04:27 WBC 4.8 RBC 4.75 Hgb 15.0 Hct 45.4 MCV 96 MCH 31.6 MCHC 33.1 RDW 16.7 H Plt Count 169 Sodium 141.9 Potassium 4.3 Chloride 101 Carbon Dioxide 33 H Anion Gap 8 BUN 40 H Creatinine 1.85 H Est GFR ( Amer) 43 L Est GFR (Non-Af Amer) 35 L Glucose 116 H Calcium 8.9 10/19/18 01:45 Clean Catch Midstream Urine Culture - Final Urogenital Yaneth 10/16/18 10/16/18 10/16/18 17:40 17:40 22:20 Creatine Kinase 48 L 45 L CK-MB (CK-2) 1.46 Troponin I 0.029 NT-Pro-B Natriuret Pep 10583 H 10/16/18 10/17/18 10/17/18 22:20 04:03 10:02 Creatine Kinase 41 L 45 L CK-MB (CK-2) 1.12 Troponin I 0.021 NT-Pro-B Natriuret Pep 10/17/18 10/17/18 10/17/18 10:02 14:43 14:43 Creatine Kinase CK-MB (CK-2) 1.47 1.39 Troponin I 0.019 0.018 NT-Pro-B Natriuret Pep 68350 H 10/19/18 10/20/18 07:52 05:53 Creatine Kinase CK-MB (CK-2) Troponin I NT-Pro-B Natriuret Pep 69349 H 8690 H Impressions: Chest X-Ray 10/16/18 17:12 IMPRESSION: Cardiomegaly without pulmonary edema. Qualifiers - * PATIENT BEING DISCHARGED WITH ANY OF THE FOLLOWING DIAGNOSIS: No Acute Heart Failure - Is this a Heart Failure Patient?: Yes Documentation of LVEF assessment?: Yes LVEF < 40%?: Yes-if yes answer questions a through e a) Discharged on ACEI?: No, document contraindications b) Discharges on ARB?: Yes c) Discharged on ARNI?: Yes d) Discharged on evidence-based Beta felipe(carvedilol, sustained release metoprolol succinate, or bisoprolol)?: Yes e) For LVEF <35%, discharged on Aldosterone antagonist?: Yes 3. Anticoagulant therapy for permanect/persistent/paraoxysmal Afib or Aflutter: Yes Plan Time Spent: Greater than 30 Minutes
== END 2018-10-22 13:37 | disposition home or self-care (01) | DRG 291 ==
LOC: ER 16:37 → EH 21:24 → 4S 21:50 → EH 21:55 → 3W 10-17 12:41
PROVIDERS: ADMIT Emergency Medicine; ATTEND Emergency Medicine
DX: I13.0 Hypertensive heart and chronic kidney disease with heart failure and stage 1 through stage 4 chronic kidney disease, or unspecified chronic kidney disease (principal); I50.33 Acute on chronic diastolic (congestive) heart failure; I42.0 Dilated cardiomyopathy; Z95.0 Presence of cardiac pacemaker; Z96.659 Presence of unspecified artificial knee joint; I48.2 Chronic atrial fibrillation; E11.22 Type 2 diabetes mellitus with diabetic chronic kidney disease; N18.3 Chronic kidney disease, stage 3 (moderate); N40.1 Benign prostatic hyperplasia with lower urinary tract symptoms; R33.8 Other retention of urine; R41.0 Disorientation, unspecified; T42.6X5A Adverse effect of other antiepileptic and sedative-hypnotic drugs, initial encounter; Z82.49 Family history of ischemic heart disease and other diseases of the circulatory system; Z79.02 Long term (current) use of antithrombotics/antiplatelets; Z79.899 Other long term (current) drug therapy; Z88.1 Allergy status to other antibiotic agents
CPT/HCPCS: 36415; 71045; 80048; 80053; 80061; 81001; 82550; 82553; 82962; 83036; 83735; 83880; 84439; 84443; 84481; 84484; 85025; 85027; 87086; 93005; 93010; 93306; 94660; 99285; C1758; J1815; J1940; J3480; J3490; J7050

== ENCOUNTER → 2019-02-04 | Outpatient (CLI) | payer MEDICARE, BC ==
[2019-02-04 14:11] LABS: ABSOLUTE BASOPHILS # (AUTO) 0.1 10^3/uL (0.0-0.2); ABSOLUTE EOSINOPHILS # (AUTO) 0.2 10^3/uL (0.0-0.6); ABSOLUTE LYMPHOCYTES (AUTO) 1.1 10^3/uL (0.5-4.7); ABSOLUTE MONOCYTES (AUTO) 0.8 10^3/uL (0.1-1.4); ABSOLUTE NEUT (AUTO) 4.7 10^3/uL (1.7-8.2); BASOPHILS % (AUTO) 0.8 % (0-2); EOSINOPHILS % (AUTO) 3.4 % (0-6); HEMATOCRIT 45.3 % (37.9-51.0); HEMOGLOBIN 15.4 g/dL (13.5-17.0); LYMPHOCYTES % (AUTO) 15.4 % (13-45); MEAN CORPUSCULAR HEMOGLOBIN 33.1 pg (27.0-33.4); MEAN CORPUSCULAR VOLUME 97 fl (80-97); MONOCYTES % (AUTO) 12.1 % (3-13); PLATELET COUNT 218 10^3/uL (150-450); RED BLOOD COUNT 4.66 10^6/uL (4.35-5.55); SEGMENTED NEUTROPHILS % (AUTO) 68.3 % (42-78); TOTAL CELLS COUNTED % (AUTO) 100 %; WHITE BLOOD COUNT 6.9 10^3/uL (4.0-10.5)
[2019-02-04 14:26] LABS: ALKALINE PHOSPHATASE 94 U/L (38-126); ANION GAP 8 (5-19); ASPARTATE AMINO TRANSFERASE 18 U/L (17-59); BILIRUBIN,DIRECT 0.2 mg/dL (0.0-0.4); BLOOD UREA NITROGEN 36 mg/dL (7-20); CALCIUM 9.2 mg/dL (8.4-10.2); CARBON DIOXIDE 32 mmol/L (22-30); CHLORIDE 100 mmol/L (98-107); GLUCOSE 225 mg/dL (75-110); PHOSPHORUS 3.7 mg/dL (2.5-4.5); POTASSIUM 3.7 mmol/L (3.6-5.0); TOTAL PROTEIN 7.4 g/dL (6.3-8.2); URIC ACID 11.9 mg/dL (3.5-8.5)
[2019-02-04 15:30] LABS: APPEARANCE,URINE CLOUDY; BILIRUBIN,URINE NEGATIVE (NEGATIVE); COLOR,URINE YELLOW; GLUCOSE, URINE NEGATIVE (NEGATIVE); KETONES,URINE NEGATIVE (NEGATIVE); LEUKOCYTE ESTERASE,URINE LARGE (NEGATIVE); NITRITE,URINE NEGATIVE (NEGATIVE); PROTEIN,URINE 30 mg/dL (NEGATIVE); URINE SPECIFIC GRAVITY 1.012; UROBILINOGEN,URINE NEGATIVE mg/dL (<2.0)
== END ==
LOC: OD 13:38
PROVIDERS: ATTEND Internal Medicine Nephrology
DX: I13.0 Hypertensive heart and chronic kidney disease with heart failure and stage 1 through stage 4 chronic kidney disease, or unspecified chronic kidney disease (principal); I50.9 Heart failure, unspecified; N18.4 Chronic kidney disease, stage 4 (severe); E11.22 Type 2 diabetes mellitus with diabetic chronic kidney disease; R31.9 Hematuria, unspecified; N39.0 Urinary tract infection, site not specified
CPT/HCPCS: 36415; 80053; 81001; 83735; 83970; 84100; 84550; 85025; 87086; 87088; 87186